=== PATIENT | male | born 1960 | race Caucasian/White ===

== ENCOUNTER 2017-03-15 18:59 | Inpatient (IN) | payer MEDICAID, SELFPAY ==
[~2017-03-15] VITALS: Ht 188 cm; Wt 104.5 kg
[2017-03-15 20:50] VITALS: BP 206/108
[2017-03-15] MEDS: HumaLOG INSULIN (NovoLOG) PER UNIT SC SCH (21:00)
[2017-03-15] MEDS: SENOKOT S TAB PO SCH (21:00)
[2017-03-15] MEDS: ATORVASTATIN 20 MG TAB PO SCH (21:00)
[2017-03-15 21:18] LABS: MEAN CORPUSCULAR HEMOGLOBIN 31.2 pg (27.0-33.0); MEAN CORPUSCULAR HGB CONC 34.4 g/dl (32.0-36.5); MEAN CORPUSCULAR VOLUME 90.7 fl (80.0-96.0); RED CELL DISTRIBUTION WIDTH 13.6 % (11.5-14.5); WHITE BLOOD COUNT 8.9 K/mm3 (4.0-10.0)
[2017-03-15] MEDS ORDERED: GLUCOSE 4 GM CHEW TABLET PO PRN (21:30)
[2017-03-15] MEDS ORDERED: DEXTROSE 50% 50 ML SYRINGE IV PRN (21:30)
[2017-03-15] MEDS ORDERED: GLUCAGON FOR INJ 1 MG VIAL (J1610) SC PRN (21:30)
[2017-03-15 21:40] LABS: ANION GAP 7 MEQ/L (8-16); BLOOD UREA NITROGEN 9 MG/DL (7-18); CALCIUM LEVEL 8.6 MG/DL (8.5-10.1); CARBON DIOXIDE LEVEL 27 MEQ/L (21-32); CHLORIDE LEVEL 103 MEQ/L (98-107); CREATININE FOR GFR 0.93 MG/DL (0.70-1.30); GLOMERULAR FILTRATION RATE > 60.0 (>56); GLUCOSE, FASTING 262 MG/DL (70-105); POTASSIUM SERUM 3.7 MEQ/L (3.5-5.1); SODIUM LEVEL 137 MEQ/L (136-145)
[2017-03-15] MEDS ORDERED: DIPH50CA PO (21:58)
[2017-03-15] MEDS ORDERED: NORC1TAB4 PO (21:58)
[2017-03-15] MEDS: hydrALAZINE INJ 20 MG/ML VIAL IV SCH (22:05)
[2017-03-15 22:44] LABS: CHOLESTEROL LEVEL 159 MG/DL (<200); TRIGLYCERIDES LEVEL 192 MG/DL (<150)
--- NOTE | 2017-03-15 23:40 | REPUSA ---
MRA of the brain Clinical history: Left sided numbness. Technique: [id number] MRA images of the brain were obtained without administration of contrast. 3 -D MIP images were also obtained. 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 There is also no signifi cant flow demonstrated in the right superior cerebellar artery, although flow is seen in the left cer ebellar artery. Reconstitution of blood flow is seen just proximal to the The vascular structures ex tending from the distal carotid through the hughes of Van demonstrate normal caliber and contour. There is no evidence of aneurysm. 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
--- NOTE | 2017-03-15 23:50 | REPUSA ---
MRI of the brain Clinical history: left-sided numbness. Technique: Multiecho multiplanar MRI images of the brain were obtained without administration of cont rast. Diffusion weighted images with ADC mapping was also obtained. Findings: The ventricles and sulci are symmetric bilaterally. There is a focal area of T2 hyperintensity demon strated the posterior right lashay. This site demonstrates restricted diffusion, consistent with an acu te infarct. Mild edema is seen in this region on T2 weighted images. There is no midline shift, mass effect, or extra-axial fluid collection. The cervical cranial junction is intact. The orbits are unre markable. The visualized paranasal sinuses and mastoid air cells are clear. The osseous structures an d superficial soft tissues are unremarkable. The vascular structures demonstrate appropriate flow voi ds. 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 Laura, the floor nurse, was notified of these findings at 11:42 PM on 03/15/2017. The physician is to be notified.
[2017-03-15 23:59] VITALS: BP 184/98
[2017-03-16] VITALS (8 sets, daily range): BP systolic 160–186; BP diastolic 82–98
--- NOTE | 2017-03-16 01:18 | IPNPDOC ---
Text Note Date of Service The patient was seen on 03/16/17. NOTE Spoke with Dr Regan in [facility] for possible transfer for thrombectomy . However as his NIHSS stroke score is only 4 he is not a candidate for any endovascular intervention. It is recommended only is the score is [address] or greater[address] Sp[address] with [address] Hatch he will be seeing the patient. Will continue with statin , asa, maintain sbp between 160 to 180 , neuro checks. VS,Fishbone, I+O VS, Fishbone, I+O Laboratory Tests 03/15/17 21:09 Red Blood Count 5.78, Mean Corpuscular Volume 90.7, Mean Corpuscular Hemoglobin 31.2, Mean Corpuscular Hemoglobin Concent 34.4, Red Cell Distribution Width 13.6 , Calcium Level 8.6 Vital Signs Date Time Temp Pulse Resp B/P (MAP) Pulse Ox O2 Delivery O2 Flow Rate FiO2 03/15/17 23:59 99.6 95 20 184/98 (126) 95 Room Air I&O- Last 24 Hours up to 6 AM 03/16/17 06:00 Intake Total 0 ml Balance 0 ml VICKI DRISCOLL MD March 16, 2017 01:18
[2017-03-16] MEDS: hydrALAZINE INJ 20 MG/ML VIAL IV SCH ×4 (02:55→21:10)
--- NOTE | 2017-03-16 03:47 | REP ---
Clinical: Acute stroke. Technique: Gramajo scale and color Doppler evaluation using linear high frequency transducer Findings: Two-dimensional gramajo scale and color images demonstrate intimal thickening to the bilateral common carotid arteries extending to the carotid bulbs where small amounts of mixed plaque material is identified causing minimal luminal narrowing. Normal laminar flow is appreciated without turbulence or significant stenosis. Color Doppler interrogation demonstrates normal arterial wave patterns and velocities with no significant spectral broadening. Normal flow direction is appreciated in the bilateral vertebral arteries. RIGHT (cm/s) LEFT (cm/s) ICA peak systolic velocity 90.7 996.8 ICA diastolic velocity 37.0 34.5 ECA peak systolic velocity 162.6 153.9 CCA peak systolic velocity 122.2 145.8 ICA/CCA ratio 0.74 0.66 Impression: No hemodynamically significant areas of narrowing or stenosis appreciated. Based on set standards narrowing falls within the less than 50% range. Signed by Jad Silva MD 03/16/2017 03:39 A
--- NOTE | 2017-03-16 05:32 | HPE ---
DATE OF ADMISSION: 03/15/2017 PRIMARY CARE PROVIDER: JAVIER Nation. CHIEF COMPLAINT: Patient presented to [facility] with left-sided tingling, numbness, weakness and lightness for 1 day. PAST MEDICAL HISTORY: Hypertension, has not taken any medications for at least 10 years. HISTORY OF PRESENT ILLNESS: This is a 56-year-old male, has not seen any physician except orthopedic surgeons for the past 10 years and has not had any blood work done that he can remember for the past 10 years, who has been feeling sick for 1 week. He felt off balance, which happened intermittently throughout the week. He also had blurring of vision intermittently during the week, then on one day last week he checked his blood pressure, which was over 200; however, he rechecked it later, which came down back to normal. He was also feeling some abnormal sensations over his hands and legs today. The tingling and numbness was all throughout the left side of the body including the face, the upper extremities and the lower extremities. He felt his hands and his legs were pelts skinner and numb and he felt that he was not able to make his hand do his commands properly. He thought that he was having a stroke. In the emergency department (ED), on initial arrival, his blood pressure was noted to be 216/139, pulse was 110, respiratory rate 16, temperature 98.5, pulse oximetry 99% in room air. He had a CT scan of the head dome at [facility], which did not show any acute stroke; however, on physical exam, it was felt his left side was weaker and there was drift on the left upper extremity, so the concern for stroke remained high, so our hospital was called for transfer as they did not have MRA capabilities, so the patient was transferred here for evaluation for stroke. On admission here, initially his blood pressure was 210. Patient was ordered MRI and MRA of the brain. Patient's blood work from [place] was significant for hemoglobin of 18.4, hematocrit of 50, platelets of 132. His sodium was 129, blood sugar was 326. Liver function tests were normal. Renal function tests were normal. Coagulation studies were normal. Patient did say that he took someone else's ramipril on , Thursday and Thursday after he noted his blood pressure to be high on Thursday and after taking the ramipril his blood pressure had improved. He denied any fever or chills. Denied any chest pain, any shortness of breath or cough. Denied any abdominal pain, nausea, vomiting or diarrhea. He continues to have persistent abnormal sensations on the left side of the body and weakness. PAST SURGICAL HISTORY: Right knee surgery and left knee surgery about 10 years ago. SOCIAL HISTORY: Patient smokes about a pack per day. Occasionally drinks alcohol. Does not abuse any recreational drugs. ALLERGIES: No known drug allergies. HOME MEDICATIONS: Does not take any home medications. REVIEW OF SYSTEMS: All 10-point review of systems was negative except those mentioned in history of present illness (HPI). PHYSICAL EXAMINATION: VITAL SIGNS: Temperature 97.5, pulse 94, respiratory rate 20, blood pressure 206/108, pulse oximetry 94% in room air. GENERAL: Patient awake, alert, oriented times three, lying down in bed in no acute distress. HEENT: Normocephalic, atraumatic. Moist mucous membranes. Anicteric eyes. CHEST: Clear to auscultation. CARDIOVASCULAR: S1, S2 regular. No rub, murmur or gallop. ABDOMEN: Soft, nontender, bowel sounds present. EXTREMITIES: No edema. NEUROLOGICAL: There is 4/5 power in the upper extremity and 4/5 power in the lower extremity. There is pronator drift of the upper extremity. Babinski is equivocal. Deep tendon reflexes could not be elicited on either lower extremity. LABORATORY DATA: WBC 8.9, hemoglobin 18, platelets 128. Sodium 137, potassium 3.7, chloride 103, bicarbonate 27, BUN 9, creatinine 0.9, glucose 262, calcium 8.6. ASSESSMENT AND PLAN: This is a 56-year-old male admitted for possible stroke. PLAN: 1. For possible stroke, will get MRI and MRA of the brain without contrast. Will also get carotid ultrasound bilaterally. Patient already received aspirin and statin at [facility]. Will continue that from tomorrow. Will allow for permissive hypertension and will not give any antihypertensive medications unless systolic blood pressure is over 180. 2. Diabetes. Patient has two tests of over 200 random values, so that qualifies the patient as diabetic. Will place the patient on sliding-scale insulin at present and will later start the patient on oral hypoglycemic medications. 3. Hypertension. Patient did have some blood pressure readings in that hospital, as well as initial blood pressure reading in our hospital over 200. Will place the patient on as needed hydralazine 10 mg intravenously (IV) if systolic blood pressure is greater than 180. 4. Deep venous thrombosis (DVT) prophylaxis has been ordered.
[2017-03-16] MEDS: ENOXAPARIN 40 MG/0.4 ML SYRINGE (J1650) SC SCH (08:59)
[2017-03-16] MEDS ORDERED: ASPIRIN ENTERIC 325 MG TAB PO SCH (09:00)
[2017-03-16] MEDS ORDERED: ASPIRIN 81 MG ENTERIC TAB PO SCH (09:00)
[2017-03-16] MEDS: HumaLOG INSULIN (NovoLOG) PER UNIT SC SCH ×4 (09:00→21:00)
[2017-03-16] MEDS: SENOKOT S TAB PO SCH ×2 (09:00→21:10)
[2017-03-16 09:25] LABS: MEAN CORPUSCULAR HEMOGLOBIN 31.8 pg (27.0-33.0); MEAN CORPUSCULAR HGB CONC 35.5 g/dl (32.0-36.5); MEAN CORPUSCULAR VOLUME 89.5 fl (80.0-96.0); RED CELL DISTRIBUTION WIDTH 13.6 % (11.5-14.5); WHITE BLOOD COUNT 9.7 K/mm3 (4.0-10.0)
[2017-03-16 09:41] LABS: ANION GAP 9 MEQ/L (8-16); BLOOD UREA NITROGEN 10 MG/DL (7-18); CALCIUM LEVEL 8.4 MG/DL (8.5-10.1); CARBON DIOXIDE LEVEL 24 MEQ/L (21-32); CHLORIDE LEVEL 104 MEQ/L (98-107); CREATININE FOR GFR 0.81 MG/DL (0.70-1.30); GLOMERULAR FILTRATION RATE > 60.0 (>56); GLUCOSE, FASTING 220 MG/DL (70-105); POTASSIUM SERUM 3.6 MEQ/L (3.5-5.1); SODIUM LEVEL 137 MEQ/L (136-145)
--- NOTE | 2017-03-16 09:44 | IPNPDOC ---
Date Seen The patient was seen on 03/16/17. Progress Note SUBJECTIVE: Mr. Almaguer is a 56-year-old male who is examined at bedside this morning. He is alert and conversant. He is able to follow my commands and answer appropriately. He continues to report persistent numbness and tingling on the left side. Positive pronator drift in the upper and lower extremity. Patient states he is not aware of any history of hypertension. Is a current tobacco user. Smokes approximately 2 packs a day and has done so since the age of 15. No family history of stroke. No facial droop or tongue deviation. Denies chest pain. Patient states that symptoms started a week ago on Thursday and reported that his balance was off and that he had some blurry vision. He states that the symptoms subsided but then returned and persisted yesterday. This was the reason for presenting to the emergency department. OBJECTIVE PHYSICAL EXAMINATION: VITAL SIGNS: Please see below. GENERAL: Well-developed, well-nourished male sitting comfortably in hospital bed upon evaluation this morning, no apparent distress HEENT: Atraumatic, normocephalic, no facial droop present, no tongue deviation, altered sensation noted on the left side CARDIOVASCULAR: Regular rate and rhythm, normal S1 and S2, no murmur, rub, click RESPIRATORY: Clear to auscultation bilaterally, adequate inspiratory and expiratory airway excursion, no wheeze, rhonchi, crackles ABDOMINAL: Flat, soft, nontender, nondistended EXTREMITIES: Pronator drift present in the left upper and lower extremity, peripheral pulses appreciated bilaterally, equal, symmetrical, +2/4, diminished reflexes noted on the left, normal reflexes on the right NEUROLOGICAL: Numbness and tingling noted on the left side PSYCHOLOGICAL: Mood and affect appear appropriate LABORATORY DATA: Please see below. MICROBIOLOGY: Please see below. IMAGING: Bilateral carotid duplex Impression: No hemodynamically significant areas of narrowing or stenosis appreciated. Based on set standards narrowing falls within the less than 50% range. 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 MRI of the brain without contrast Impression: Acute infarct in the posterior right lashay. Echocardiogram: Pending DVT prophylaxis ordered?: Lovenox 40 mg subcutaneous daily ASSESSMENT AND PLAN: Mr. Almaguer is a 56-year-old male who presents with cerebrovascular accident. PROBLEMS: 1. Cerebrovascular accident, basilar artery: Imaging reports above that indicate acute infarction to the basilar artery. Carotid ultrasound was negative. Maintaining permissive hypertension. Patient's blood pressure is currently 178/85. Neurology has been consulted. Patient continues to have persistent altered sensation to the left side. Receiving aspirin 325 mg daily, hydralazine 10 mg every 6 hours, and Lipitor 40 mg at night. Various studies are being conducted to evaluate for potential cause of stroke. 2. Chronic pain: Patient does take Mcdade outpatient. We'll hold this medication for the time being. 3. Allergies: Patient takes diphenhydramine for allergies. DISPOSITION: Patient continues to have persistent altered sensation to the left side. Imaging reveals acute infarction to the basilar artery. Appreciate neurology's consultation. Continue with current therapy. Order physical therapy , occupational therapy, and speech therapy. Patient reports difficulty swallowing secondary to numbness on the left side. Aspiration precautions. VS, I&O, 24H, Fishbone Vital Signs/I&O Vital Signs Date Time Temp Pulse Resp B/P (MAP) Pulse Ox O2 Delivery O2 Flow Rate FiO2 03/16/17 08:00 174/82 03/16/17 08:00 98.1 85 18 95 Room Air I&O- Last 24 Hours up to 6 AM 03/16/17 06:00 Intake Total 120 ml Output Total 550 ml Balance -430 ml Laboratory Data 24H LABS Laboratory Tests 2 03/15/17 21:04: Estimated Mean Plasma Glucose 255H, Hemoglobin A1c 10.5H 03/15/17 21:09: Anion Gap 7L, Glomerular Filtration Rate > 60.0, Blood Urea Nitrogen 9, Creatinine 0.93, Sodium Level 137, Potassium Level 3.7, Chloride Level 103, Carbon Dioxide Level 27, Calcium Level 8.6, Triglycerides Level 192H, LDL Cholesterol 83.6, Total Cholesterol 159, Non-HDL Cholesterol (LDL + VLDL) 122, Total HDL Cholesterol 37L, Cholesterol/HDL Ratio 4.297 03/16/17 04:55: Erythrocyte Sedimentation Rate 2, C-Reactive Protein, Quantitative < 0.30 03/16/17 06:17: Bedside Glucose (Misc Panel) 209H CBC/BMP Laboratory Tests 03/15/17 21:09 Red Blood Count 5.78, Mean Corpuscular Volume 90.7, Mean Corpuscular Hemoglobin 31.2, Mean Corpuscular Hemoglobin Concent 34.4, Red Cell Distribution Width 13.6 , Calcium Level 8.6 SONU BARRON-Alexander March 16, 2017 09:44
[2017-03-16] MEDS: NICOTINE 21MG/24HR 1 EA TRANSDERMAL TD SCH (10:14)
[2017-03-16] MEDS ORDERED: SLF 3 ML SYR IV PRN (10:15)
--- NOTE | 2017-03-16 13:32 | REP ---
MR ANGIOGRAPHY OF THE CAROTIDS WITHOUT AND WITH IV GADOLINIUM: HISTORY: Acute stroke. Comparison is made with the previous day's MRI study would interpreted showing a right posterior pontine infarction. TECHNIQUE: 2D [id number] and 3D post-gadolinium enhanced MR angiography is acquired in the usual fashion. Maximal intensity projection images are generated and displayed rotationally. Source axial and coronal images are reviewed. The gadolinium enhancement dose is 25 ml of intravenous ProHance. MR angiographic findings: Great vessel origins from the thoracic aorta are unremarkable. The vertebral arteries are patent and codominant. There is however a high-grade stenosis versus short segment occlusion of the basilar artery. The right distal vertebral artery is hypoplastic. The common carotid arteries are unremarkable. No evidence of carotid artery stenosis is seen on either side. The internal carotid arteries are unremarkable bilaterally. IMPRESSION: High-grade focal stenosis versus short segment occlusion of the basilar artery. Signed by Alf Booth MD 03/16/2017 03:43 P
[2017-03-16] MEDS: SLF 3 ML SYR IV SCH ×2 (14:00→21:13)
[2017-03-16] MEDS ORDERED: CLOPIDOGREL 75 MG TAB PO ONE (16:00)
[2017-03-16] MEDS: ATORVASTATIN 20 MG TAB PO SCH (21:08)
[2017-03-17] VITALS (9 sets, daily range): BP systolic 154–189; BP diastolic 82–107
[2017-03-17] MEDS: hydrALAZINE INJ 20 MG/ML VIAL IV SCH ×4 (02:17→20:28)
[2017-03-17] MEDS ORDERED: ASPIRIN 81 MG ENTERIC TAB PO ONE (03:15)
[2017-03-17] MEDS ORDERED: ACETAMINOPHEN TAB 650MG DOSE (2X325MG) PO ONE (04:30)
[2017-03-17] MEDS: SLF 3 ML SYR IV SCH ×3 (05:29→21:14)
--- NOTE | 2017-03-17 06:00 | ECHO ---
DATE OF PROCEDURE: 03/15/2017 AGE: 56 GENDER: Male REFERRING PHYSICIAN: Dr. Keyana Meek. HEIGHT: 74 inches. WEIGHT: 233 pounds. BODY SURFACE AREA: 2.32 sq m. INPATIENT: PCU Room 3221. INDICATION: Cerebrovascular accident (CVA, question cardiac source). MEASUREMENTS: 2D MEASUREMENTS: RV - 3.9 cm LV- 4.8 cm Septum - 1.3 cm Posterior wall - 1.3 cm Aortic root - 3.7 cm LA - 4.2 cm LVEF - 65% DOPPLER MEASUREMENTS: AV - 1.1 m/s LVOT - 0.95 m/s LVOT diameter - 2.7 cm MV-E: 73 A: 110 EA ratio 0.6 Early mitral deacceleration time 155 ms E-prime - 6.1 A-prime - 13 E/E prime ratio 11.8 PV - 0.9 m/s Pulmonary artery acceleration time 81 ms PASP - 43 mmHg IVC - 1.8 cm COMMENTS: Normal sinus rhythm without significant intraventricular conduction disturbance. Technically difficult study in light of the patient's body habitus but diagnostically useful information was still obtained. Mildly dilated left atrium but normal left ventricular size. Right heart chamber sizes were normal. LV wall thickness was at least mildly hypertrophied symmetrically. On real-time imaging from the parasternal and apical projections, wall motion was symmetrical and normal to hyperkinetic. Slightly thickened mitral annulus but normal leaflet thickness and excursion with no posterior systolic buckling. Three equal size aortic cusps with marginally thickened cusp edges but adequate cusp separation. Normal aortic root size. No apparent intracardiac mass or pericardial effusion. Color flow Doppler study taken from the parasternal and apical projection showed trace tricuspid but no mitral or aortic insufficiency. Guided continuous wave Doppler of his aortic valve showed a normal peak systolic velocity against LV outflow tract obstruction. Pulsed and continuous wave Doppler of his LV inflow tract taken from the apical four-chamber projection showed normal diastolic filling velocities against mitral stenosis. There was more prominent late diastolic/atrial dependent filling pattern. A degree of diastolic dysfunction was confirmed using tissue Doppler of his mitral annulus but his current estimated mean left atrial pressure was upper limits of normal at approximately 15 mmHg. Pulsed and continuous wave Doppler of his pulmonary trunk showed a normal peak systolic velocity against RV outflow tract obstruction. His pulmonary artery acceleration time was abbreviated suggestive of an elevated pulmonary vascular resistance and perhaps moderate pulmonary hypertension. We attempted to further estimate his right ventricular systolic pressure using guided continuous wave Doppler of his tricuspid valve but could not get a clear spectral envelope. His inferior vena cava was of normal size with normal respiratory collapse against an elevated central venous pressure. CONCLUSIONS: Technically difficult study. Unable to identify a potential intracardiac source of his embolic phenomenon. Mild concentric left ventricle hypertrophy with normal wall motion. Mildly dilated left atrium with Doppler evidence of an impairment of LV diastolic function and estimated mean left atrial pressure upper limits of normal to mildly increased. Normal right heart chamber sizes but Doppler sign of perhaps mild to moderate pulmonary hypertension. Normal IVC size and collapse against an elevated central venous pressure. Subtle aortic valvular sclerosis and mitral annular thickening. If a cardiac source is seriously suspect in this patient, we would recommend a transesophageal echocardiogram for better visualization.
[2017-03-17 06:12] LABS: ANION GAP 11 MEQ/L (8-16); BLOOD UREA NITROGEN 10 MG/DL (7-18); CALCIUM LEVEL 8.2 MG/DL (8.5-10.1); CARBON DIOXIDE LEVEL 23 MEQ/L (21-32); CHLORIDE LEVEL 105 MEQ/L (98-107); CREATININE FOR GFR 0.76 MG/DL (0.70-1.30); GLOMERULAR FILTRATION RATE > 60.0 (>56); GLUCOSE, FASTING 196 MG/DL (70-105); POTASSIUM SERUM 3.3 MEQ/L (3.5-5.1); SODIUM LEVEL 139 MEQ/L (136-145)
--- NOTE | 2017-03-17 06:20 | REPUSA ---
CLINICAL HISTORY: Headache. TECHNIQUE: Multiple axial CT images were obtained through the brain without IV contrast material. COMMENTS: There is normal configuration of sella turcica. There are no intra or extra-axial collections. There is no mass effect or midline shift. There is no evidence of hematoma formation. No hydrocephalus is p resent. The ventricles are symmetrical. No abnormal calcifications are present. There are bilateral periventricular and subcortical white matter hypolucencies compatible with mild c hronic microvascular disease. Otherwise, no significant focal abnormalities are seen either in the posterior fossa or supratentoria l compartment. IMPRESSION: 1. Mild chronic microvascular disease. 2. No evidence of acute intracranial pathology. Thank you for your kind referral of this patient.
[2017-03-17 06:21] LABS: BASO # 0.1 K/mm3 (0.0-0.2); EOS # 0.2 K/mm3 (0.0-0.50); EOS % 1.9 % (0.0-3.0); LARGE UNSTAINED CELL # 0.2 K/mm3 (0.0-0.4); LARGE UNSTAINED CELL % 1.5 % (0.0-4.0); LYMPH # 1.9 K/mm3 (1.5-4.5); LYMPH % 17.4 % (24.0-44.0); MEAN CORPUSCULAR HEMOGLOBIN 30.6 pg (27.0-33.0); MEAN CORPUSCULAR HGB CONC 34.8 g/dl (32.0-36.5); MEAN CORPUSCULAR VOLUME 87.8 fl (80.0-96.0); MONO # 0.6 K/mm3 (0.0-0.8); MONO % 5.7 % (0.0-5.0); NEUTROPHILS # 7.1 K/mm3 (1.8-7.7); NEUTROPHILS % 72.5 % (36.0-66.0); PLATELET COUNT, AUTOMATED 106 k/mm3 (150-450); RED CELL DISTRIBUTION WIDTH 13.7 % (11.5-14.5); WHITE BLOOD COUNT 9.8 K/mm3 (4.0-10.0)
[2017-03-17] MEDS: ENOXAPARIN 40 MG/0.4 ML SYRINGE (J1650) SC SCH (08:34)
[2017-03-17] MEDS: POTASSIUM CHLORIDE 10 MEQ SR TABLET PO SCH ×2 (08:35→11:51)
[2017-03-17] MEDS: HumaLOG INSULIN (NovoLOG) PER UNIT SC SCH ×4 (08:35→21:00)
[2017-03-17] MEDS: SENOKOT S TAB PO SCH ×2 (08:35→20:28)
[2017-03-17] MEDS: ASPIRIN 81 MG ENTERIC TAB PO SCH (08:36)
[2017-03-17] MEDS: NICOTINE 21MG/24HR 1 EA TRANSDERMAL TD SCH (08:36)
--- NOTE | 2017-03-17 14:51 | IPNPDOC ---
Date Seen The patient was seen on 03/17/17. Progress Note SUBJECTIVE: Mr. Almaguer is a 56-year-old male who is evaluated bedside this morning. He reports to me that he feels as though his numbness and tingling is getting worse. Reported headache overnight and his CT of the head was obtained. It reported no acute changes. Evaluated by physical therapy and speech therapy, and occupational therapy. OBJECTIVE PHYSICAL EXAMINATION: VITAL SIGNS: Please see below. GENERAL: Pleasant male sitting on the edge of the bed upon evaluation this morning, well-nourished, well-developed, no apparent distress HEENT: Atraumatic, normocephalic, PERRL, EOMI, lateral nystagmus noted in the right eye, no facial asymmetry appreciated CARDIOVASCULAR: Regular rate and rhythm, normal S1 and S2, no murmur, rub, click appreciated RESPIRATORY: Clear to auscultation bilaterally, adequate inspiratory next for airway excursion, no wheeze, rhonchi, crackles ABDOMINAL: Soft, nontender, nondistended, bowel sounds appreciated EXTREMITIES: No edema appreciated in bilateral lower extremities; lower extremity muscle strength 5/5; sensation still diminished on the entire left side of the body; left upper extremity muscle strength 4/5; right upper extremity muscle strength 5/5; upper and lower extremity reflexes unobtainable even with multiple attempts; skin warm, dry, intact; no atrophy appreciated NEUROLOGICAL: Sensation to the entire left side of the body is diminished; appropriate shoulder shrug, no tongue deviation, no facial asymmetry, lateral nystagmus noted on the right PSYCHOLOGICAL: Mood and affect appear appropriate LABORATORY DATA: Please see below. MICROBIOLOGY: Please see below. IMAGING: CT of the head without contrast IMPRESSION: 1. Mild chronic microvascular disease. 2. No evidence of acute intracranial pathology. Echocardiogram: CONCLUSIONS: Technically difficult study. Unable to identify a potential intracardiac source of his embolic phenomenon. Mild concentric left ventricle hypertrophy with normal wall motion. Mildly dilated left atrium with Doppler evidence of an impairment of LV diastolic function and estimated mean left atrial pressure upper limits of normal to mildly increased. Normal right heart chamber sizes but Doppler sign of perhaps mild to moderate pulmonary hypertension. Normal IVC size and collapse against an elevated central venous pressure. Subtle aortic valvular sclerosis and mitral annular thickening. If a cardiac source is seriously suspect in this patient, we would recommend a transesophageal echocardiogram for better visualization. DVT prophylaxis ordered?: Aspirin 81 mg and Plavix 75 mg daily ASSESSMENT AND PLAN: Mr. Almaguer is a 56-year-old male who presents with cerebrovascular accident and new onset diabetes. PROBLEMS: 1. Cerebrovascular accident, basilar artery: Continue neurology's input. Continue with permissive hypertension for the next 48 hours. Continue with aspirin and Plavix. Transthoracic echocardiogram was not revealing as a source for emboli. Cardiac source less likely as an etiology. Patient has significant tobacco use history. Physical therapy, occupational therapy, and speech therapy consulted. 2. Diabetes mellitus, new onset: Continue with sliding scale insulin and hypoglycemic protocol. 3. Hypokalemia: Likely result of sliding scale insulin. Supplementation provided. 2. Chronic pain: Patient does take [place] outpatient. We'll hold this medication for the time being. 3. Allergies: Continue with diphenhydramine. DISPOSITION: Currently admitted to the progressive care unit. Continue with physical therapy and occupational therapy. Potential transfer to rehabilitation services in the next 48-72 hours. VS, I&O, 24H, Fishbone Vital Signs/I&O Vital Signs Date Time Temp Pulse Resp B/P (MAP) Pulse Ox O2 Delivery O2 Flow Rate FiO2 03/17/17 13:50 175/96 03/17/17 13:40 105 03/17/17 11:46 96.7 20 96 03/17/17 08:00 Room Air I&O- Last 24 Hours up to 6 AM 03/17/17 06:00 Intake Total 600 ml Output Total 1100 ml Balance -500 ml Laboratory Data 24H LABS Laboratory Tests 2 03/16/17 16:55: Bedside Glucose (Misc Panel) 213H 03/16/17 19:23: Bedside Glucose (Misc Panel) 221H 03/17/17 05:33: White Blood Count 9.8, Red Blood Count 5.65, Hemoglobin 17.3, Hematocrit 49.6, Mean Corpuscular Volume 87.8, Mean Corpuscular Hemoglobin 30.6, Mean Corpuscular Hemoglobin Concent 34.8, Red Cell Distribution Width 13.7, Platelet Count 106L, Neutrophils (%) (Auto) 72.5H, Lymphocytes (%) (Auto) 17.4L, Monocytes (%) (Auto) 5.7H, Eosinophils (%) (Auto) 1.9, Basophils (%) (Auto) 1.0 , Neutrophils # (Auto) 7.1, Lymphocytes # (Auto) 1.9, Monocytes # (Auto) 0.6, Eosinophils # (Auto) 0.2, Basophils # (Auto) 0.1, Large Unclassified Cells % 1.5 , Large Unclassified Cells # 0.2, Anion Gap 11, Glomerular Filtration Rate > 60.0, Blood Urea Nitrogen 10, Creatinine 0.76, Sodium Level 139, Potassium Level 3.3L, Chloride Level 105, Carbon Dioxide Level 23, Calcium Level 8.2L 03/17/17 11:32: Bedside Glucose (Misc Panel) 183H CBC/BMP Laboratory Tests 03/17/17 05:33 Red Blood Count 5.65, Mean Corpuscular Volume 87.8, Mean Corpuscular Hemoglobin 30.6, Mean Corpuscular Hemoglobin Concent 34.8, Red Cell Distribution Width 13.7 , Neutrophils (%) (Auto) 72.5 H, Lymphocytes (%) (Auto) 17.4 L, Monocytes (%) ( Auto) 5.7 H, Eosinophils (%) (Auto) 1.9, Basophils (%) (Auto) 1.0, Neutrophils # (Auto) 7.1, Lymphocytes # (Auto) 1.9, Monocytes # (Auto) 0.6, Eosinophils # ( Auto) 0.2, Basophils # (Auto) 0.1, Calcium Level 8.2 L SONU BARRON-Alexander March 17, 2017 14:51
[2017-03-17] MEDS: ATORVASTATIN 20 MG TAB PO SCH (20:28)
--- NOTE | 2017-03-17 21:43 | CR ---
DATE OF CONSULTATION: 03/17/2017 REASON FOR CONSULTATION: Suspect stroke. HISTORY OF PRESENT ILLNESS: Cedric Almaguer is a 56-year-old male with a past medical history significant for untreated diabetes, tobacco abuse presenting with a chief complaint of experiencing intermittent symptoms of dizziness, off balance feeling, blurring of vision intermittently for the week. He suddenly developed left upper and lower extremity paresthesias and tingling which persisted. He was seen at [facility] and he was thought to have possible stroke. Head CT was negative. The patient was later transferred to [facility] for further evaluation. By then, the patient is out of the TPA window. The patient was found to have evidence of a right posterior pontine infarct, as well as evidence of a vascular severe stenosis versus occlusion with right atrial artery occlusion. The patient was started on aspirin 81 mg daily. This was switched over to aspirin 81 mg and Plavix 75 mg daily. The patient states that he is ready to quit tobacco. He states that he continues to have paresthesias of his left arm and leg and trunk. He has weakness and clumsiness of his left arm and of his left leg. He has a positive pronator drift upon assessment. He denies any headache. He denies any change in vision or speech. He denies any dysarthria. PAST MEDICAL HISTORY: Tobacco abuse, untreated diabetes, new diagnosis for the patient. PAST SURGICAL HISTORY: Right knee surgery and left knee surgery about 10 years ago. SOCIAL HISTORY: The patient smokes one to two packs of tobacco per day and drinks alcohol recreationally. Denies use of any recreational drugs. ALLERGIES: None. MEDICATIONS: None. REVIEW OF SYSTEMS: 14-point review of systems obtained and is negative except as per history of present illness. PHYSICAL EXAMINATION Blood pressure is 206/108 on admission, pulse rate 94, respiratory rate 20, oxygenation 94% on room air. The patient is alert, oriented to person, place and time. Speech language, repetition are intact. Pupils are 3 mm round, reactive to light. No nystagmus is noted. V1, V2-V3 is intact to light touch. Hearing is subjectively equal to finger rub and tongue is midline. Palate elevates symmetrically. No weakness sternocleidomastoids bilaterally. Motor examination: There is positive pronator drift of the left upper extremity. Deltoid is a 5-/5, otherwise 5/5 throughout. The lower extremity iliopsoas on the left is a 4+, otherwise 5/5 throughout. Deep tendon reflexes are slightly increased in the left upper extremity compared to the right. Deep tendon reflexes are absent at the patellas and Achilles. Babinski signs are mute. Sensory is in decreased to light touch in the left upper and lower extremity. Coordination reveals mild dysmetria with [id number] of the left upper extremity. Gait deferred. ASSESSMENT: 1. Posterior right pontine acute infarct with severe stenosis of deep vessel artery versus occlusion, as well as occlusion of the right vertebral artery under the setting of tobacco abuse and undiagnosed diabetes. PLAN 1. Optimize diabetes. 2. Continue aspirin 81 mg, Plavix 75 mg. 3. Continue Lipitor 40 mg. 4. Continue telemetry monitoring. Followup echocardiogram. 5. Physical therapy (PT) and occupational therapy (OT) evaluation. 6. Keep systolic blood pressure 140 to 180 for 72 hours and then normalize. 7. Recommend tobacco cessation.
[2017-03-18] VITALS (7 sets, daily range): BP systolic 140–174; BP diastolic 67–110
[2017-03-18] MEDS: hydrALAZINE INJ 20 MG/ML VIAL IV SCH ×4 (01:09→20:00)
[2017-03-18] MEDS: SLF 3 ML SYR IV SCH ×3 (05:34→21:34)
[2017-03-18 06:12] LABS: BASO # 0.1 K/mm3 (0.0-0.2); BASO % 0.8 % (0.0-1.0); EOS # 0.2 K/mm3 (0.0-0.50); EOS % 1.7 % (0.0-3.0); LARGE UNSTAINED CELL # 0.2 K/mm3 (0.0-0.4); LARGE UNSTAINED CELL % 1.7 % (0.0-4.0); LYMPH # 1.6 K/mm3 (1.5-4.5); MEAN CORPUSCULAR HEMOGLOBIN 31.2 pg (27.0-33.0); MEAN CORPUSCULAR HGB CONC 34.6 g/dl (32.0-36.5); MEAN CORPUSCULAR VOLUME 90.2 fl (80.0-96.0); MONO # 0.7 K/mm3 (0.0-0.8); MONO % 7.5 % (0.0-5.0); NEUTROPHILS # 6.3 K/mm3 (1.8-7.7); NEUTROPHILS % 70.5 % (36.0-66.0); PLATELET COUNT, AUTOMATED 133 k/mm3 (150-450); RED CELL DISTRIBUTION WIDTH 13.8 % (11.5-14.5)
[2017-03-18 06:21] LABS: ANION GAP 11 MEQ/L (8-16); BLOOD UREA NITROGEN 14 MG/DL (7-18); CALCIUM LEVEL 8.9 MG/DL (8.5-10.1); CARBON DIOXIDE LEVEL 21 MEQ/L (21-32); CHLORIDE LEVEL 109 MEQ/L (98-107); CREATININE FOR GFR 0.75 MG/DL (0.70-1.30); GLOMERULAR FILTRATION RATE > 60.0 (>56); GLUCOSE, FASTING 196 MG/DL (70-105); POTASSIUM SERUM 3.5 MEQ/L (3.5-5.1); SODIUM LEVEL 141 MEQ/L (136-145)
[2017-03-18] MEDS: HumaLOG INSULIN (NovoLOG) PER UNIT SC SCH ×4 (08:25→21:00)
[2017-03-18] MEDS: SENOKOT S TAB PO SCH ×3 (08:26→21:00)
[2017-03-18] MEDS: NICOTINE 21MG/24HR 1 EA TRANSDERMAL TD SCH (08:26)
[2017-03-18] MEDS: CLOPIDOGREL 75 MG TAB PO SCH (08:26)
[2017-03-18] MEDS: ASPIRIN 81 MG ENTERIC TAB PO SCH (08:26)
[2017-03-18] MEDS: ENOXAPARIN 40 MG/0.4 ML SYRINGE (J1650) SC SCH (08:27)
[2017-03-18] MEDS ORDERED: POTASSIUM CHLORIDE 10 MEQ SR TABLET PO ONE (10:00)
--- NOTE | 2017-03-18 11:47 | IPNPDOC ---
Date Seen The patient was seen on 03/18/17. Progress Note SUBJECTIVE: Mr. Almaguer is a 56 year old male evaluated at bedside this morning. He is sitting chairside upon evaluation. Reports that strength and sensation continue to improve. Continues to work with PT and OT. Denies chest pain, shortness of breath. Had a mechanical fall yesterday without LOC or hitting his head. Reports that it was secondary to his altered sensation on his left side. States that he drink EtOH occasionally. OBJECTIVE PHYSICAL EXAMINATION: VITAL SIGNS: Please see below. GENERAL: Well nourished, well developed male evaluated at chairside this morning, no apparent distress HEENT: Atraumatic, normocephalic, PERRL, EOMI, right sided lateral nystagmus, altered sensation to left side of face, no asymmetry CARDIOVASCULAR: Regular rate and rhythm, normal S1 and S2, no murmur, rub, click appreciated RESPIRATORY: Clear to auscultation bilaterally, adequate inspiratory and expiratory airway excursion, no wheeze, rhonchi, crackles ABDOMINAL: Soft, flat, non-tender, non-distended, bowel sounds appreciated EXTREMITIES: LE muscle strength 5/5, sensation improving, but still altered; peripheral pulses appreciated in UE and LE b/l, equal, symmetrical, +2/4; finger -to-nose on the right intact, altered on the left, but improving; UE muscle strength 5/5, sensation improving NEUROLOGICAL: Sensation altered to entire left side, but improving; no facial asymmetry; no muscle weakness PSYCHOLOGICAL: Mood and affect appear appropriate LABORATORY DATA: Please see below. MICROBIOLOGY: Please see below. DVT prophylaxis ordered?: Aspirin 81 mg and Plavix 75 mg daily ASSESSMENT AND PLAN: Mr. Almaguer is a 56-year-old male who presents with cerebrovascular accident and new onset diabetes. PROBLEMS: 1. Cerebrovascular accident, basilar artery with left-sided weakness: Left- sided weakness has been present since admission and has been improving. Started carvedilol to control BP and tachycardia. Continue with aspirin and Plavix. Continue with physical therapy and occupational therapy. 2. Tachycardia: Patient reports being active with PT and OT exercises. Have started carvedilol 6.25mg BID. 3. Diabetes mellitus, new onset: Continue with sliding scale insulin and hypoglycemic protocol. 2. Chronic pain: Patient does take [place] outpatient. We'll hold this medication for the time being. 3. Allergies: Continue with diphenhydramine. DISPOSITION: Currently admitted to the progressive care unit. Continue with physical therapy and occupational therapy. Potential transfer to rehabilitation services in the next 24-48 hours. VS, I&O, 24H, Fabiobone Vital Signs/I&O Vital Signs Date Time Temp Pulse Resp B/P (MAP) Pulse Ox O2 Delivery O2 Flow Rate FiO2 03/18/17 08:44 115 160/92 (114) 03/18/17 08:00 97.5 18 95 Room Air I&O- Last 24 Hours up to 6 AM 03/18/17 06:00 Intake Total 360 ml Output Total 1400 ml Balance -1040 ml Laboratory Data 24H LABS Laboratory Tests 2 03/17/17 16:30: Bedside Glucose (Misc Panel) 196H 03/17/17 21:11: Bedside Glucose (Misc Panel) 189H 03/18/17 05:30: White Blood Count 9.0, Red Blood Count 5.73, Hemoglobin 17.9, Hematocrit 51.7, Mean Corpuscular Volume 90.2, Mean Corpuscular Hemoglobin 31.2, Mean Corpuscular Hemoglobin Concent 34.6, Red Cell Distribution Width 13.8, Platelet Count 133L, Neutrophils (%) (Auto) 70.5H, Lymphocytes (%) (Auto) 18.0L, Monocytes (%) (Auto) 7.5H, Eosinophils (%) (Auto) 1.7, Basophils (%) (Auto) 0.8 , Neutrophils # (Auto) 6.3, Lymphocytes # (Auto) 1.6, Monocytes # (Auto) 0.7, Eosinophils # (Auto) 0.2, Basophils # (Auto) 0.1, Large Unclassified Cells % 1.7 , Large Unclassified Cells # 0.2, Anion Gap 11, Glomerular Filtration Rate > 60.0, Blood Urea Nitrogen 14, Creatinine 0.75, Sodium Level 141, Potassium Level 3.5, Chloride Level 109H, Carbon Dioxide Level 21, Calcium Level 8.9 CBC/BMP Laboratory Tests 03/18/17 05:30 Red Blood Count 5.73, Mean Corpuscular Volume 90.2, Mean Corpuscular Hemoglobin 31.2, Mean Corpuscular Hemoglobin Concent 34.6, Red Cell Distribution Width 13.8 , Neutrophils (%) (Auto) 70.5 H, Lymphocytes (%) (Auto) 18.0 L, Monocytes (%) ( Auto) 7.5 H, Eosinophils (%) (Auto) 1.7, Basophils (%) (Auto) 0.8, Neutrophils # (Auto) 6.3, Lymphocytes # (Auto) 1.6, Monocytes # (Auto) 0.7, Eosinophils # ( Auto) 0.2, Basophils # (Auto) 0.1, Calcium Level 8.9 SONU BARRON-I March 18, 2017 11:47
[2017-03-18] MEDS: CARVedilol 6.25 MG TAB PO SCH ×2 (12:20→21:34)
[2017-03-18 14:20] LABS: PROTEIN C ANTIGEN 97 % (60-150); PROTEIN S ANTIGEN FREE 90 % (57-157); PROTEIN S ANTIGEN TOTAL 92 % (60-150)
[2017-03-18] MEDS: ATORVASTATIN 20 MG TAB PO SCH (21:34)
[2017-03-19] MEDS: hydrALAZINE INJ 20 MG/ML VIAL IV SCH ×3 (02:00→13:38)
[2017-03-19 04:00] VITALS: BP 155/75
[2017-03-19 05:27] LABS: BASO % 0.6 % (0.0-1.0); EOS # 0.2 K/mm3 (0.0-0.50); EOS % 2.5 % (0.0-3.0); LARGE UNSTAINED CELL # 0.2 K/mm3 (0.0-0.4); LARGE UNSTAINED CELL % 1.8 % (0.0-4.0); LYMPH % 23.4 % (24.0-44.0); MEAN CORPUSCULAR HEMOGLOBIN 31.5 pg (27.0-33.0); MEAN CORPUSCULAR HGB CONC 34.1 g/dl (32.0-36.5); MEAN CORPUSCULAR VOLUME 92.1 fl (80.0-96.0); MONO # 0.5 K/mm3 (0.0-0.8); MONO % 5.8 % (0.0-5.0); NEUTROPHILS # 5.6 K/mm3 (1.8-7.7); NEUTROPHILS % 65.8 % (36.0-66.0); PLATELET COUNT, AUTOMATED 101 k/mm3 (150-450); RED CELL DISTRIBUTION WIDTH 13.9 % (11.5-14.5); WHITE BLOOD COUNT 8.5 K/mm3 (4.0-10.0)
[2017-03-19 05:43] LABS: ANION GAP 7 MEQ/L (8-16); BLOOD UREA NITROGEN 15 MG/DL (7-18); CALCIUM LEVEL 8.8 MG/DL (8.5-10.1); CARBON DIOXIDE LEVEL 27 MEQ/L (21-32); CHLORIDE LEVEL 107 MEQ/L (98-107); CREATININE FOR GFR 0.87 MG/DL (0.70-1.30); GLOMERULAR FILTRATION RATE > 60.0 (>56); GLUCOSE, FASTING 194 MG/DL (70-105); POTASSIUM SERUM 3.7 MEQ/L (3.5-5.1); SODIUM LEVEL 141 MEQ/L (136-145)
[2017-03-19] MEDS: SLF 3 ML SYR IV SCH ×2 (06:37→13:48)
[2017-03-19 08:00] VITALS: BP 166/91
[2017-03-19] MEDS ORDERED: CARVedilol 12.5 MG TAB PO SCH (09:00)
[2017-03-19] MEDS: SENOKOT S TAB PO SCH (09:00)
[2017-03-19] MEDS: HumaLOG INSULIN (NovoLOG) PER UNIT SC SCH ×2 (09:31→12:45)
[2017-03-19] MEDS: NICOTINE 21MG/24HR 1 EA TRANSDERMAL TD SCH (09:32)
[2017-03-19] MEDS: CLOPIDOGREL 75 MG TAB PO SCH (09:32)
[2017-03-19] MEDS: ASPIRIN 81 MG ENTERIC TAB PO SCH (09:32)
[2017-03-19 11:19] VITALS: BP 142/88
[2017-03-19] MEDS ORDERED: INSUHUMDS SC ×2 (11:28→11:31)
[2017-03-19] MEDS ORDERED: CLOP75TA2 PO (11:31)
[2017-03-19] MEDS ORDERED: ASPI81TAEC PO (11:31)
[2017-03-19] MEDS ORDERED: CARV12.5 PO ×2 (11:31→18:08)
[2017-03-19] MEDS ORDERED: NICO21PAT TD (11:31)
[2017-03-19] MEDS ORDERED: ATOR1TAB21 PO (11:31)
[2017-03-19 12:00] VITALS: BP 142/88
[2017-03-19 13:38] VITALS: BP 144/74
--- NOTE | 2017-03-19 18:52 | DS.PDOC ---
Discharge Summary General Date of Admission March 15, 2017 at 20:50 Date of Discharge 03/19/2017 Primary Care Physician: Richard Le Attending Physician: MANSI DONALDSON MD Specialist/Consultants Involve: TALIA WELCH MD Specialist/Consultants Involve Neurology Discharge Summary PROCEDURES PERFORMED DURING STAY: None. ADMITTING DIAGNOSES: 1. Cerebrovascular accident with left-sided weakness. 2. New onset diabetes mellitus, type II. 3. Hypertension. DISCHARGE DIAGNOSES: 1. Cerebrovascular accident with left-sided weakness. 2. New onset diabetes mellitus type 2. 3. Hypokalemia. 4. Tachycardia. COMPLICATIONS/CHIEF COMPLAINT: Diabetes; Stroke. HISTORY OF PRESENT ILLNESS: Mr. Almaguer is a 56-year-old male, has not seen any physician except orthopedic surgeons for the past 10 years and has not had any blood work done that he can remember for the past 10 years, who has been feeling sick for 1 week. He felt off balance, which happened intermittently throughout the week. He also had blurring of vision intermittently during the week, then on one day last week he checked his blood pressure, which was over 200; however, he rechecked it later, which came down back to normal. He was also feeling some abnormal sensations over his hands and legs today. The tingling and numbness was all throughout the left side of the body including the face, the upper extremities and the lower extremities. He felt his hands and his legs were curtain cleaner and numb and he felt that he was not able to make his hand do his commands properly. He thought that he was having a stroke. In the emergency department (ED), on initial arrival, his blood pressure was noted to be 216/139, pulse was 110, respiratory rate 16, temperature 98.5, pulse oximetry 99% in room air. He had a CT scan of the head dome at [facility], which did not show any acute stroke; however, on physical exam, it was felt his left side was weaker and there was drift on the left upper extremity, so the concern for stroke remained high, so our hospital was called for transfer as they did not have MRA capabilities, so the patient was transferred here for evaluation for stroke. On admission here, initially his blood pressure was 210. Patient was ordered MRI and MRA of the brain. Patient's blood work from [facility] was significant for hemoglobin of 18.4, hematocrit of 50, platelets of 132. His sodium was 129 , blood sugar was 326. Liver function tests were normal. Renal function tests were normal. Coagulation studies were normal. Patient did say that he took someone else's ramipril on , Thursday and Thursday after he noted his blood pressure to be high on Thursday and after taking the ramipril his blood pressure had improved. He denied any fever or chills. Denied any chest pain, any shortness of breath or cough. Denied any abdominal pain, nausea, vomiting or diarrhea. He continues to have persistent abnormal sensations on the left side of the body and weakness.. HOSPITAL COURSE: Patient was admitted to the progressive care unit. MRI and MRA of the brain without contrast were obtained and are reported below. Carotid ultrasound bilaterally was obtained and is reported below. Continued aspirin and statin. We'll maintain permissive hypertension. Initiated sliding scale insulin with hypoglycemic protocol. Place patient on hydralazine for systolic blood pressure over 200 with holding parameters. DVT prophylaxis with Lovenox. Patient does not recall criteria for endovascular intervention. Neurology recommended continued medical therapy, telemetry monitoring, tobacco cessation, and permissive hypertension. Echocardiogram was obtained and report is result below. Physical therapy, occupational therapy, and speech therapy evaluated patient throughout hospitalization will noting improvements, but also recommended the patient continue with skilled rehabilitation therapy. Patient developed isolated hypokalemia for which was supplemented. Started on carvedilol 6.25 mg twice daily for hypertension and tachycardia which was increased to 12.5 mg twice daily. Patient's vital signs improved. Patient showed significant clinical improvement sternal hospitalization and was stable for transfer to physical medicine and rehabilitation. DISCHARGE MEDICATIONS: Please see below. ALLERGIES: Please see below. PHYSICAL EXAMINATION ON DISCHARGE: VITAL SIGNS: Please see below. GENERAL: Well-nourished, well-developed male sitting in chair side upon evaluation this morning, no apparent distress HEENT: Atraumatic, normocephalic, PERRL, EOMI, oral mucosa appears pink and moist, nasal septum appears midline, mild right-sided lateral nystagmus NECK: Soft, supple, trachea midline, no lymphadenopathy appreciated CARDIOVASCULAR EXAMINATION: Regular rate and rhythm, normal S1 and S2, no murmur , rub, click appreciated RESPIRATORY EXAMINATION: Clear to auscultation bilaterally, adequate historian extremity airway excursion, no wheeze, rhonchi, crackles appreciated ABDOMINAL EXAMINATION: Flat, soft, nontender, nondistended, bowel sounds appreciated EXTREMITIES: peripheral pulses appreciated in upper and lower extremities bilaterally, equal, symmetrical, +2/4; muscle strength 5/5 in upper and lower extremities bilaterally SKIN: Warm, dry, intact; without edema NEUROLOGICAL EXAMINATION: Finger to nose on the right intact, tender to nose on the left improving, no tongue deviation, sensation improving to the left side of the body, no facial asymmetry appreciated PSYCHIATRIC EXAMINATION: Mood and affect appear appropriate LABORATORY DATA: Please see below. IMAGING: Transthoracic echocardiogram CONCLUSIONS: Technically difficult study. Unable to identify a potential intracardiac source of his embolic phenomenon. Mild concentric left ventricle hypertrophy with normal wall motion. Mildly dilated left atrium with Doppler evidence of an impairment of LV diastolic function and estimated mean left atrial pressure upper limits of normal to mildly increased. Normal right heart chamber sizes but Doppler sign of perhaps mild to moderate pulmonary hypertension. Normal IVC size and collapse against an elevated central venous pressure. Subtle aortic valvular sclerosis and mitral annular thickening. If a cardiac source is seriously suspect in this patient, we would recommend a transesophageal echocardiogram for better visualization. Carotid duplex IMPRESSION: No hemodynamically significant areas of narrowing or stenosis appreciated. Based on set standards narrowing falls within the less than 50% range. MRA of the brain without contrast IMPRESSION: Focal thrombosis of the mid portion of the basilar artery, with no significant flow seen in the right superior cerebellar artery. MRI of the brain without contrast IMPRESSION: Acute infarct in the posterior right lashay. MRA of the carotids without followed by with contrast IMPRESSION: High-grade focal stenosis versus short segment occlusion of the basilar artery. CT of the head without contrast IMPRESSION: 1. Mild chronic microvascular disease. 2. No evidence of acute intracranial pathology. PROGNOSIS: Stable. ACTIVITY: As tolerated. DIET: Consistent carbohydrate. DISCHARGE PLAN: See discharge instructions DISPOSITION: 62 D/T Rehab Facility. DISCHARGE INSTRUCTIONS: 1. Continue physical therapy and occupational therapy with physical medicine and rehabilitation. ITEMS TO FOLLOWUP ON ON OUTPATIENT: 1. Follow-up with primary care provider. 2. Follow-up with neurology. 3. Further management for diabetes. DISCHARGE CONDITION: Stable. TIME SPENT ON DISCHARGE: Greater than 30 minutes. Vital Signs/I&Os Vital Signs Date Time Temp Pulse Resp B/P (MAP) Pulse Ox O2 Delivery O2 Flow Rate FiO2 03/19/17 13:38 144/74 03/19/17 12:00 98.2 80 20 92 Room Air I&O- Last 24 Hours up to 6 AM 03/19/17 06:00 Intake Total 2760 ml Output Total 1375 ml Balance 1385 ml Laboratory Data Labs 24H Laboratory Tests 2 03/18/17 21:09: Bedside Glucose (Misc Panel) 199H 03/19/17 05:15: White Blood Count 8.5, Red Blood Count 5.42, Hemoglobin 17.1, Hematocrit 50.0, Mean Corpuscular Volume 92.1, Mean Corpuscular Hemoglobin 31.5, Mean Corpuscular Hemoglobin Concent 34.1, Red Cell Distribution Width 13.9, Platelet Count 101L, Neutrophils (%) (Auto) 65.8, Lymphocytes (%) (Auto) 23.4L, Monocytes (%) (Auto) 5.8H, Eosinophils (%) (Auto) 2.5, Basophils (%) (Auto) 0.6 , Neutrophils # (Auto) 5.6, Lymphocytes # (Auto) 2.0, Monocytes # (Auto) 0.5, Eosinophils # (Auto) 0.2, Basophils # (Auto) 0.0, Large Unclassified Cells % 1.8 , Large Unclassified Cells # 0.2, Anion Gap 7L, Glomerular Filtration Rate > 60.0, Blood Urea Nitrogen 15, Creatinine 0.87, Sodium Level 141, Potassium Level 3.7, Chloride Level 107, Carbon Dioxide Level 27, Calcium Level 8.8 03/19/17 11:23: Bedside Glucose (Misc Panel) 151H CBC/BMP Laboratory Tests 03/19/17 05:15 Red Blood Count 5.42, Mean Corpuscular Volume 92.1, Mean Corpuscular Hemoglobin 31.5, Mean Corpuscular Hemoglobin Concent 34.1, Red Cell Distribution Width 13.9 , Neutrophils (%) (Auto) 65.8, Lymphocytes (%) (Auto) 23.4 L, Monocytes (%) ( Auto) 5.8 H, Eosinophils (%) (Auto) 2.5, Basophils (%) (Auto) 0.6, Neutrophils # (Auto) 5.6, Lymphocytes # (Auto) 2.0, Monocytes # (Auto) 0.5, Eosinophils # ( Auto) 0.2, Basophils # (Auto) 0.0, Calcium Level 8.8 FSBS Laboratory Tests Test 5/10/17 21:09 03/19/17 11:23 Range/Units Bedside Glucose (Misc Panel) 199 151 70-105 MG/DL Discharge Medications Scheduled Aspirin (Aspirin EC) 81 Mg Tabec, 81 MG PO QAM Atorvastatin Calcium (Atorvastatin Calcium) 20 Mg Tab, 40 MG PO QHS Carvedilol (Carvedilol) 12.5 Mg Tab, 12.5 MG PO BID Clopidogrel Bisulfate (Clopidogrel) 75 Mg Tab, 75 MG PO DAILY Insulin Human Lispro (Humalog) 1 Units/0.01 Ml Inj, 0 UNITS SC AC Insulin Human Lispro (Humalog) 1 Units/0.01 Ml Inj, 0 UNITS SC QHS Nicotine (Nicotine Transdermal Syst) 21 Mg/24 Hr Dis, 1 PATCH TD DAILY Scheduled PRN Diphenhydramine HCl (Diphenhydramine HCl) 50 Mg Cap, 50 MG PO Q4H PRN for ALLERGIES, (Reported) Allergies Coded Allergies: No Known Drug Allergy (Verified Allergy, Unknown, 03/15/17) SONU BARRON-Alexander March 19, 2017 18:52
== END 2017-03-19 16:24 | DRG 45 ==
LOC: M PCU 20:50
PROVIDERS: ADMIT Internal Medicine Nephrology; ATTEND Internal Medicine
DX: I63.211 Cerebral infarction due to unspecified occlusion or stenosis of right vertebral artery (principal); G81.94 Hemiplegia, unspecified affecting left nondominant side; I10 Essential (primary) hypertension; E87.6 Hypokalemia; F17.210 Nicotine dependence, cigarettes, uncomplicated; E11.9 Type 2 diabetes mellitus without complications; J30.9 Allergic rhinitis, unspecified; G89.29 Other chronic pain; Z79.891 Long term (current) use of opiate analgesic; Z79.899 Other long term (current) drug therapy

== ENCOUNTER 2017-03-19 15:18 | Inpatient (IN) | payer MEDICAID ==
[~2017-03-19] VITALS: Ht 188 cm; Wt 107.3 kg
[~2017-03-19 15:18] MED LIST: ASPI81TAEC PO; ATOR1TAB21 PO; CARV12.5 PO; CLOP75TA2 PO; DIPH50CA PO; INSUHUMDS SC; NICO21PAT TD; NORC1TAB4 PO
[2017-03-19] MEDS ORDERED: FLEET ENEMA PR PRN (15:30)
[2017-03-19] MEDS ORDERED: MOM 30ML SUSPENSION UDC PO PRN (15:30)
[2017-03-19] MEDS ORDERED: GLUCAGON FOR INJ 1 MG VIAL (J1610) SC PRN (16:45)
[2017-03-19] MEDS ORDERED: GLUCOSE 4 GM CHEW TABLET PO PRN (16:45)
[2017-03-19] MEDS ORDERED: DEXTROSE 50% 50 ML SYRINGE IV PRN (16:45)
[2017-03-19 16:49] VITALS: BP 160/84
[2017-03-19] MEDS: HumaLOG INSULIN (NovoLOG) PER UNIT SC SCH ×2 (17:26→20:48)
[2017-03-19] MEDS ORDERED: hydrALAZINE INJ 20 MG/ML VIAL IV PRN (17:30)
[2017-03-19] MEDS ORDERED: **hydrALAZINE** 10 MG TAB PO PRN (17:45)
[2017-03-19] MEDS ORDERED: CARV12.5 PO (18:08)
[2017-03-19 20:30] VITALS: BP 158/84
[2017-03-19] MEDS: ATORVASTATIN 20 MG TAB PO SCH (20:47)
[2017-03-19] MEDS: ENOXAPARIN 30 MG/0.3 ML SYR (J1650) SC SCH (20:47)
[2017-03-19] MEDS: CARVedilol 12.5 MG TAB PO SCH (20:48)
[2017-03-19] MEDS: SENNA 8.6 MG TAB (SENOKOT) PO SCH ×2 (20:48→20:53)
[2017-03-20 06:06] VITALS: BP 148/84
[2017-03-20 07:20] LABS: BASO % 0.6 % (0.0-1.0); EOS # 0.2 K/mm3 (0.0-0.50); EOS % 2.3 % (0.0-3.0); LARGE UNSTAINED CELL # 0.1 K/mm3 (0.0-0.4); LARGE UNSTAINED CELL % 1.8 % (0.0-4.0); LYMPH # 2.1 K/mm3 (1.5-4.5); LYMPH % 28.6 % (24.0-44.0); MEAN CORPUSCULAR HEMOGLOBIN 30.7 pg (27.0-33.0); MEAN CORPUSCULAR HGB CONC 34.5 g/dl (32.0-36.5); MEAN CORPUSCULAR VOLUME 89.1 fl (80.0-96.0); MONO # 0.6 K/mm3 (0.0-0.8); MONO % 7.9 % (0.0-5.0); NEUTROPHILS # 4.1 K/mm3 (1.8-7.7); NEUTROPHILS % 58.8 % (36.0-66.0); RED CELL DISTRIBUTION WIDTH 13.9 % (11.5-14.5)
[2017-03-20 07:52] LABS: ALBUMIN 3.3 GM/DL (3.2-5.2); ALBUMIN/GLOBULIN RATIO 1.14 (1.00-1.93); ALKALINE PHOSPHATASE 40 U/L (45-117); ALT/SGPT 39 U/L (12-78); ANION GAP 7 MEQ/L (8-16); AST/SGOT 62 U/L (15-37); BLOOD UREA NITROGEN 15 MG/DL (7-18); CALCIUM LEVEL 8.4 MG/DL (8.5-10.1); CARBON DIOXIDE LEVEL 27 MEQ/L (21-32); CHLORIDE LEVEL 107 MEQ/L (98-107); CREATININE FOR GFR 0.84 MG/DL (0.70-1.30); GLOMERULAR FILTRATION RATE > 60.0 (>56); GLUCOSE, FASTING 183 MG/DL (70-105); POTASSIUM SERUM 3.5 MEQ/L (3.5-5.1); SODIUM LEVEL 141 MEQ/L (136-145); TOTAL PROTEIN 6.2 GM/DL (6.4-8.2)
[2017-03-20] MEDS: ENOXAPARIN 30 MG/0.3 ML SYR (J1650) SC SCH ×2 (08:30→20:37)
[2017-03-20] MEDS: HumaLOG INSULIN (NovoLOG) PER UNIT SC SCH ×4 (08:30→20:38)
[2017-03-20] MEDS: NICOTINE 21MG/24HR 1 EA TRANSDERMAL TD SCH (08:30)
[2017-03-20] MEDS: CLOPIDOGREL 75 MG TAB PO SCH (08:32)
[2017-03-20] MEDS: ASPIRIN 81 MG ENTERIC TAB PO SCH (08:32)
[2017-03-20] MEDS: CARVedilol 12.5 MG TAB PO SCH ×2 (08:32→20:37)
--- NOTE | 2017-03-20 13:50 | IPNPDOC ---
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 Patient without complaints of pain, GI / or musculoskeletal except for new knee abrasion when patient slipped while walking with a front wheel walker down to his left knee. ALLERGIES: See Below MEDICATIONS: Reviewed, see below. OBJECTIVE: VITAL SIGNS: Please see below. PHYSICAL EXAMINATION: GENERAL: Well-nourished well-developed middle-aged white male who is alert and well oriented with full strength on the right and good strength and fair to good control on the left upper and lower extremity. Patient is in no acute distress. HEENT: Normocephalic/atraumatic. CARDIOVASCULAR: Regular rate and rhythm with normal S1-S2 into L4 radial pulses. LUNGS: All alex clear to auscultation. ABDOMEN: Benign with normal bowel sounds in all quadrants. NEUROLOGICAL: As above. Patient with some impulsivity and decrease left body awareness. SKIN: Less than 1 cm diameter abrasion of the left upper garcia with half a centimeter diameter area of ecchymosis from his fall this morning. No other injuries found from the fall and patient without complaints. LABORATORY DATA: Reviewed. Please see below. MICROBIOLOGY: Please see below. IMAGING: No new imaging. DVT prophylaxis ordered?: Lovenox and aspirin with CAREY habirdie. ASSESSMENT AND PLAN: 1. Rehabilitation right pontine CVA: Patient starting assessments with physical and occupational therapy, he is a bit over enthusiastic and over rating of his skill level at this time. Patient needs to become more aware of his left sided coordination and awareness problems. He should do well with therapy and seems to have understood this causing him to misstep and go down to his left knee today and training. 2. Hypertension: Patient seems to be responding reasonably well to medications. 3. Baseline labs: CBC and electrolytes/renal function appeared to be normal. Elevated hemoglobin fasting at 183 due to his new onset diabetes. Calcium is mildly decreased at 8.4 in spite of albumin 3.3 Britta good except for slight increase in AST of 62. 4. Type 2 diabetes mellitus: Patient starting into more education and overall some mild elevation of glucose but we will continue to monitor this with medicine senior telecommunications consultant. TIME SPENT: Chart Review, examination and documentation greater than 25 minutes. Allergies Coded Allergies: No Known Drug Allergy (Verified Allergy, Unknown, 03/15/17) Vital Signs Vital Signs Date Time Temp Pulse Resp B/P (MAP) Pulse Ox O2 Delivery O2 Flow Rate FiO2 03/20/17 08:32 79 154/84 03/20/17 06:06 98.3 18 94 Room Air Laboratory Data CBC/BMP Laboratory Tests 03/20/17 06:26 Red Blood Count 5.05, Mean Corpuscular Volume 89.1, Mean Corpuscular Hemoglobin 30.7, Mean Corpuscular Hemoglobin Concent 34.5, Red Cell Distribution Width 13.9 , Neutrophils (%) (Auto) 58.8, Lymphocytes (%) (Auto) 28.6, Monocytes (%) (Auto ) 7.9 H, Eosinophils (%) (Auto) 2.3, Basophils (%) (Auto) 0.6, Neutrophils # ( Auto) 4.1, Lymphocytes # (Auto) 2.1, Monocytes # (Auto) 0.6, Eosinophils # (Auto ) 0.2, Basophils # (Auto) 0.0, Calcium Level 8.4 L, Aspartate Amino Transf (AST/ SGOT) 62 H, Alanine Aminotransferase (ALT/SGPT) 39, Alkaline Phosphatase 40 L, Total Bilirubin 1.0, Total Protein 6.2 L, Albumin 3.3 Labs 24H Laboratory Tests 2 03/19/17 16:37: Bedside Glucose (Misc Panel) 188H 03/19/17 19:40: Urine Appearance CLEAR, Urine Color YELLOW, Urine pH 5.0, Urine Specific [place] 1.024, Urine Protein NEGATIVE, Urine Glucose (UA) 3+H, Urine Ketones TRACEH, Urine Urobilinogen 2.0H, Urine Bilirubin NEGATIVE, Urine Leukocyte Esterase NEGATIVE, Urine Blood NEGATIVE, Urine Nitrite NEGATIVE, Urine WBC (Auto ) 1, Urine RBC (Auto) 2, Urine Hyaline Casts (Auto) 0, Urine Bacteria (Auto) 1+H , Urine Squamous Epithelial Cells 0, Urine Mucus (Auto) SMALL, Urine Sperm (Auto ) SMALLH 03/19/17 20:41: Bedside Glucose (Misc Panel) 196H 03/20/17 05:55: Bedside Glucose (Misc Panel) 175H 03/20/17 06:26: White Blood Count 7.0, Red Blood Count 5.05, Hemoglobin 15.5, Hematocrit 45.0, Mean Corpuscular Volume 89.1, Mean Corpuscular Hemoglobin 30.7, Mean Corpuscular Hemoglobin Concent 34.5, Red Cell Distribution Width 13.9, Platelet Count , Neutrophils (%) (Auto) 58.8, Lymphocytes (%) (Auto) 28.6, Monocytes (%) (Auto) 7.9H, Eosinophils (%) (Auto) 2.3, Basophils (%) (Auto) 0.6, Neutrophils # (Auto) 4.1, Lymphocytes # (Auto) 2.1, Monocytes # (Auto) 0.6, Eosinophils # ( Auto) 0.2, Basophils # (Auto) 0.0, Large Unclassified Cells % 1.8, Large Unclassified Cells # 0.1, Anion Gap 7L, Glomerular Filtration Rate > 60.0, Blood Urea Nitrogen 15, Creatinine 0.84, Sodium Level 141, Potassium Level 3.5, Chloride Level 107, Carbon Dioxide Level 27, Calcium Level 8.4L, Aspartate Amino Transf (AST/SGOT) 62H, Alanine Aminotransferase (ALT/SGPT) 39, Alkaline Phosphatase 40L, Total Bilirubin 1.0, Total Protein 6.2L, Albumin 3.3, Albumin/ Globulin Ratio 1.14 03/20/17 11:40: Bedside Glucose (Misc Panel) 130H Current Medications Current Medications Current Medications Aspirin (Ecotrin) 81 mg QAM PO Last administered on 03/20/17 08:32; Start 10/25 at 09:00; Stop 04/19/17 at 08:59 Atorvastatin Calcium (Lipitor) 40 mg QHS PO Last administered on 03/19/17 20: 47; Start 03/19/17 at 21:00; Stop 04/18/17 at 20:59 Carvedilol (COReg) 25 mg BID PO Last administered on 03/20/17 08:32; Start 09/25 at 21:00; Stop 04/18/17 at 20:59 Clopidogrel Bisulfate (PLAVix) 75 mg DAILY PO Last administered on 03/20/17 08 :32; Start 03/20/17 at 09:00; Stop 04/19/17 at 08:59 Dextrose (Dextrose 50%) 25 ml ASDIRECTED PRN IV SEE LABEL COMMENTS; Start 03/19 at 16:45; Stop 04/18/17 at 16:44 Enoxaparin Sodium (Lovenox) 30 mg BID SC Last administered on 03/20/17 08:30; Start 03/19/17 at 21:00; Stop 03/24/17 at 20:59 Glucagon (Glucagon) 1 mg ASDIRECTED PRN SC SEE LABEL COMMENTS; Start 03/19/17 at 16:45; Stop 04/18/17 at 16:44 Glucose (Glucose) 16 GM ASDIRECTED PRN PO SEE LABEL COMMENTS; Start 03/19/17 at 16:45; Stop 04/18/17 at 16:44 Hydralazine HCl (Apresoline) 5 mg Q8H PRN IV HYPERTENSION; Start 03/19/17 at 17 :30; Stop 04/18/17 at 17:29; Status UNV Hydralazine HCl (Apresoline) 10 mg Q8HP PRN PO HTN; Start 03/19/17 at 17:45; Stop 04/18/17 at 17:44 Insulin Human Lispro (HumaLOG INSULIN) AC SC Last administered on 03/20/17 12 :27; Start 03/19/17 at 17:30; Stop 04/18/17 at 17:29 Insulin Human Lispro (HumaLOG INSULIN) QHS SC ; Start 03/19/17 at 21:00; Stop 04/18/17 at 20:59 Magnesium Hydroxide (Milk Of Magnesia) 30 ml DAILYPRN PRN PO CONSTIPATION; Start 03/19/17 at 15:30; Stop 04/18/17 at 15:29 Nicotine (Nicoderm Cq 21mg) 1 patch DAILY TD Last administered on 03/20/17 08: 30; Start 03/20/17 at 09:00; Stop 04/19/17 at 08:59 Senna (Senokot) 1 tab QHS PO ; Start 03/19/17 at 21:00; Stop 04/18/17 at 20:59 Sodium Biphosphate/ Sodium Phosphate (Fleet Enema) 1 ea DAILYPRN PRN [place] CONSTIPATION; Start 03/19/17 at 15:30; Stop 04/18/17 at 15:29 CLARENCE NEFF MD March 20, 2017 13:49
[2017-03-20 14:00] VITALS: BP 140/84
--- NOTE | 2017-03-20 14:57 | PMRHPE ---
DATE OF ADMISSION: 03/19/2017 REASON FOR ADMISSION/DIAGNOSES: 1. Rehabilitation of right lashay cerebrovascular accident (CVA) with left hemiparesis, decreased coordination and balance. 2. Atherosclerotic cardiovascular disease, including hypertension. 3. Newly discovered type 2 diabetes mellitus. 4. Nicotine dependence. PAST MEDICAL HISTORY: Includes: 1. Hypertension. 2. Osteoarthritis. PAST SURGICAL HISTORY: Includes: Bilateral knee surgeries. SOCIAL HISTORY: The patient has been a pack a day smoker until this admission. He drinks occasional alcohol. Denies using illicit drugs. ALLERGIES: He has no known drug allergies. The patient was not on any medications at home. At the time of admission to the rehabilitation unit, the patient is on Plavix, Lovenox, aspirin, Nicoderm patch, hydralazine, insulin sliding scale with Humalog, Senokot-S, atorvastatin for cholesterol, Coreg for hypertension. I have added magnesium hydroxide and Fleets enema for constipation. REVIEW OF SYSTEMS: 10-point review of systems negative except for the problems with left-sided weakness, discoordination, and balance noted above. PHYSICAL EXAMINATION: Blood pressure 160/91, pulse 80, respirations 20, pulse oximetry 92%, and temperature 98.2. The patient is a well-nourished, well-developed, middle-aged, white male who is in no acute distress, sitting up when I first saw him at bedside in a chair and then just recently after transferred to our unit in bed. HEENT: Normocephalic / atraumatic, wearing his cap. Hair is graying. Pupils are equal, round, and reactive to light and accommodation. Extraocular motions are intact and vision is conjugate. No notable lesion of the oropharynx. No deviation of the septum. No masses or drainage from the nose. NECK: Supple. LUNGS: Clear in all alex to auscultation. CORONARY: Shows a regular rate and rhythm with normal S1, S2, and 3/4 bilateral radial pulses with good perfusion in the upper extremities. ABDOMEN: Mildly obese but nontender with no palpable masses and normal bowel sounds in all quadrants. EXTREMITIES: With normal functional range of motion of bilateral upper and lower extremities. NEUROLOGIC: The patient is alert and oriented times four. Speech is clear, coherent and appropriate. Affect is pleasant and cooperative. Memory is good. The patient shows 4+ to 5- strength is his left upper and lower extremity with some trouble with placement, especially coordinating and his rapid alternating motion in the left hand are also decreased but within normal for these and with 5/5 strength in the right upper and lower extremity. Light touch is grossly intact in bilateral upper and lower extremities, as is vibration but the patient does note some pins and needle paresthesias in the left upper and lower extremities. LABORATORY DATA: CBC essentially normal except for low platelet count at 101, 000. Basic metabolic panel shows elevated blood sugar of 194, otherwise within normal limits. MRI of the brain shows a right pontine infarct, consistent with an embolic source and some microvascular change diffusely. ASSESSMENT AND PLAN: 1. Rehabilitation of right lashay cerebrovascular accident (CVA): The patient's main deficits are his balance and coordination which are impacting on his safety in activities of daily living (ADLs) and mobility. His endurance is very good and his ability to walk with support such as a walker is good. However, when transitioning to stairs or uneven surfaces his discoordination problem is likely to case the patient to have frequent falls and additional injuries. Therefore, he needs further work on building his coordination skills in ADLs and uneven terrain, stairs, inclines , and other type of non-flat areas to be safe to return to home. I feel he would benefit from physical and occupational therapy three hours per day. He certainly has the endurance for this. I feel this could not well be accomplished in half-way facility as the patient's blood pressure has been recently markedly elevated as well as concerns about cardiac rhythm. Therefore, he does need ongoing cardiac, neurological, and general medical evaluation and followup. 2. New onset diabetes mellitus, type 2: We will go ahead and continue working with the patient in monitoring and continue his education through nursing on managing his diabetes. At this time, he remains on a sliding scale but will probably transition from this as he prepares to go home. 3. Atherosclerotic cardiovascular disease, including hyperlipidemia and hypertension: As noted above, the patient needs ongoing followup and management and will continue medication previously noted for this. He may require some further hydralazine treatment and therefore, we will keep the current IV access. POSTADMISSION PHYSICIAN EVALUATION: I feel the patient's status is consistent with our prior evaluations and notes and the preadmission screening process. I feel, as noted above, that he is likely to benefit from acute intensive rehabilitation and will be able to participate in three hours of therapy per day. I anticipate the patient will benefit from this to allow his return to home. I feel his prognosis is good. I estimate his length of stay at 7-10 days. Time spent on chart review, history and physical, and documentation: Greater than 70 minutes. MTDD
[2017-03-20 20:33] VITALS: BP 172/90
[2017-03-20] MEDS: ATORVASTATIN 20 MG TAB PO SCH (20:38)
[2017-03-20] MEDS: SENNA 8.6 MG TAB (SENOKOT) PO SCH ×2 (20:38→20:40)
[2017-03-20 22:00] VITALS: BP 160/90
[2017-03-21 02:00] VITALS: BP 158/88
[2017-03-21 06:00] VITALS: BP 174/98
[2017-03-21] MEDS: CARVedilol 12.5 MG TAB PO SCH ×2 (07:02→20:57)
[2017-03-21] MEDS: ASPIRIN 81 MG ENTERIC TAB PO SCH (08:13)
[2017-03-21] MEDS: ENOXAPARIN 30 MG/0.3 ML SYR (J1650) SC SCH ×2 (08:13→20:58)
[2017-03-21] MEDS: LISINOPRIL 5 MG TAB PO SCH (08:13)
[2017-03-21] MEDS: HumaLOG INSULIN (NovoLOG) PER UNIT SC SCH ×4 (08:13→20:51)
[2017-03-21] MEDS: CLOPIDOGREL 75 MG TAB PO SCH (08:13)
[2017-03-21] MEDS: NICOTINE 21MG/24HR 1 EA TRANSDERMAL TD SCH (08:14)
[2017-03-21 14:00] VITALS: BP 136/70
[2017-03-21 20:00] VITALS: BP 170/81
[2017-03-21] MEDS: ATORVASTATIN 20 MG TAB PO SCH (20:57)
[2017-03-21] MEDS: SENNA 8.6 MG TAB (SENOKOT) PO SCH (21:00)
[2017-03-21 23:16] VITALS: BP 138/78
[2017-03-22 06:00] VITALS: BP 154/88
[2017-03-22 06:29] LABS: MEAN CORPUSCULAR HEMOGLOBIN 30.4 pg (27.0-33.0); MEAN CORPUSCULAR HGB CONC 34.7 g/dl (32.0-36.5); MEAN CORPUSCULAR VOLUME 87.7 fl (80.0-96.0); RED CELL DISTRIBUTION WIDTH 13.6 % (11.5-14.5); WHITE BLOOD COUNT 6.4 K/mm3 (4.0-10.0)
[2017-03-22] MEDS: HumaLOG INSULIN (NovoLOG) PER UNIT SC SCH ×4 (08:10→20:33)
[2017-03-22] MEDS: ASPIRIN 81 MG ENTERIC TAB PO SCH (08:10)
[2017-03-22] MEDS: CLOPIDOGREL 75 MG TAB PO SCH (08:10)
[2017-03-22] MEDS: LISINOPRIL 5 MG TAB PO SCH (08:10)
[2017-03-22] MEDS: ENOXAPARIN 30 MG/0.3 ML SYR (J1650) SC SCH ×3 (08:11→20:35)
[2017-03-22] MEDS: CARVedilol 12.5 MG TAB PO SCH ×2 (08:11→20:35)
[2017-03-22] MEDS: NICOTINE 21MG/24HR 1 EA TRANSDERMAL TD SCH (08:11)
[2017-03-22 14:00] VITALS: BP 154/84
[2017-03-22 20:00] VITALS: BP 161/82
[2017-03-22] MEDS: SENNA 8.6 MG TAB (SENOKOT) PO SCH (20:26)
[2017-03-22] MEDS: ATORVASTATIN 20 MG TAB PO SCH (20:34)
[2017-03-23 06:00] VITALS: BP 150/79
[2017-03-23] MEDS: HumaLOG INSULIN (NovoLOG) PER UNIT SC SCH ×4 (08:33→20:52)
[2017-03-23] MEDS: ASPIRIN 81 MG ENTERIC TAB PO SCH (08:33)
[2017-03-23] MEDS: CARVedilol 12.5 MG TAB PO SCH ×2 (08:33→20:52)
[2017-03-23] MEDS: CLOPIDOGREL 75 MG TAB PO SCH (08:33)
[2017-03-23] MEDS: ENOXAPARIN 30 MG/0.3 ML SYR (J1650) SC SCH ×2 (08:33→20:52)
[2017-03-23] MEDS: NICOTINE 21MG/24HR 1 EA TRANSDERMAL TD SCH (08:34)
[2017-03-23] MEDS: LISINOPRIL 5 MG TAB PO SCH (08:34)
--- NOTE | 2017-03-23 11:48 | IPNPDOC ---
Loading Machine Adjuster Progress Note DATE OF SERVICE: 03/23/17 DATE OF ADMISSION: March 19, 2017 at 16:25 INPATIENT REHABILITATION ADMISSION DAY: #4 SUBJECTIVE: Patient is a 56-year-old white male with right pontine CVA with left mack-paresis and trouble with coordination of left body to right body. Patient without complaints today other then having bumped his knee against the day bed in his room. No GI/, pain or other complaints. ALLERGIES: See Below MEDICATIONS: Reviewed, see below. OBJECTIVE: VITAL SIGNS: Please see below. PHYSICAL EXAMINATION: GENERAL: Well-nourished well-developed middle-aged white male who is alert and well oriented. Patient is in minimal to no acute distress. HEENT: Normocephalic/atraumatic. CARDIOVASCULAR: Regular rate and rhythm with normal S1 and S2. 2/4 pulses and bilateral radials. LUNGS: All alex clear to auscultation. ABDOMEN: Benign with normal bowel sounds. NEUROLOGICAL: Patient was uncooperative and in good spirits. He is very talkative but it is clear and coherent. Memory is good. Mild paresis of left upper and lower extremity mainly a problem as coordination of movement. SKIN: Patient with 2 small bruises on left knee region inferiorly. These are about 1/2 cm in diameter. LABORATORY DATA: Reviewed. Please see below. MICROBIOLOGY: Please see below. IMAGING: No new imaging. DVT prophylaxis ordered?: Plavix and Lovenox. ASSESSMENT AND PLAN: 1. Rehabilitation of right pontine CVA: Patient participating vigorously in therapy and is making progress especially on strength and endurance. Pain deficits or balance and coordination which limits his safety. His endurance and gaiting with a walker are doing very well, but his risk of falling remains fairly elevated due to distractability and decreased balance and coordination. Per team discussion/consensus ELOS is 10 to 14 days with Target D/C to home on . 2. Anemia: Patient dropped from 45-39 on his hematocrit between the th and the th. I will go ahead and repeat a CMP with his next CBC on 03/25. But for now vital signs are stable. 3. Diabetes mellitus type 2: This is remaining fairly stable. TIME SPENT: Chart Review, examination and documentation greater than 35 minutes. Allergies Coded Allergies: No Known Drug Allergy (Verified Allergy, Unknown, 03/15/17) Vital Signs Vital Signs Date Time Temp Pulse Resp B/P (MAP) Pulse Ox O2 Delivery O2 Flow Rate FiO2 03/23/17 08:34 150/79 03/23/17 08:33 87 03/23/17 06:00 98.9 16 97 Room Air Laboratory Data Labs 24H Laboratory Tests 2 03/22/17 18:10: Bedside Glucose (Misc Panel) 205H 03/22/17 20:33: Bedside Glucose (Misc Panel) 147H 03/23/17 06:44: Bedside Glucose (Misc Panel) 134H Current Medications Current Medications Current Medications Aspirin (Ecotrin) 81 mg QAM PO Last administered on 03/23/17 08:33; Start 10/25 at 09:00; Stop 04/19/17 at 08:59 Atorvastatin Calcium (Lipitor) 40 mg QHS PO Last administered on 03/22/17 20: 34; Start 03/19/17 at 21:00; Stop 04/18/17 at 20:59 Carvedilol (COReg) 25 mg BID PO Last administered on 03/23/17 08:33; Start 09/25 at 21:00; Stop 04/18/17 at 20:59 Clopidogrel Bisulfate (PLAVix) 75 mg DAILY PO Last administered on 03/23/17 08 :33; Start 03/20/17 at 09:00; Stop 04/19/17 at 08:59 Dextrose (Dextrose 50%) 25 ml ASDIRECTED PRN IV SEE LABEL COMMENTS; Start 03/19 at 16:45; Stop 04/18/17 at 16:44 Enoxaparin Sodium (Lovenox) 30 mg BID SC Last administered on 03/23/17 08:33; Start 03/19/17 at 21:00; Stop 03/24/17 at 20:59 Glucagon (Glucagon) 1 mg ASDIRECTED PRN SC SEE LABEL COMMENTS; Start 03/19/17 at 16:45; Stop 04/18/17 at 16:44 Glucose (Glucose) 16 GM ASDIRECTED PRN PO SEE LABEL COMMENTS; Start 03/19/17 at 16:45; Stop 04/18/17 at 16:44 Hydralazine HCl (Apresoline) 5 mg Q8H PRN IV HYPERTENSION; Start 03/19/17 at 17 :30; Stop 04/18/17 at 17:29; Status UNV Hydralazine HCl (Apresoline) 10 mg Q8HP PRN PO HTN; Start 03/19/17 at 17:45; Stop 04/18/17 at 17:44 Insulin Human Lispro (HumaLOG INSULIN) AC SC Last administered on 03/20/17 17 :02; Start 03/19/17 at 17:30; Stop 03/21/17 at 07:34; Status DC Insulin Human Lispro (HumaLOG INSULIN) QHS SC ; Start 03/19/17 at 21:00; Stop 03/21/17 at 07:34; Status DC Insulin Human Lispro (HumaLOG INSULIN) SEE PROTOCOL TABLE AC SC Last administered on 03/23/17 08:33; Start 03/21/17 at 07:30; Stop 04/20/17 at 07:29 Insulin Human Lispro (HumaLOG INSULIN) SEE PROTOCOL TABLE QHS SC ; Start at 21:00; Stop 04/20/17 at 20:59 Lisinopril (Prinivil) 5 mg DAILY PO Last administered on 03/23/17 08:34; Start 03/21/17 at 09:00; Stop 04/20/17 at 08:59 Magnesium Hydroxide (Milk Of Magnesia) 30 ml DAILYPRN PRN PO CONSTIPATION; Start 03/19/17 at 15:30; Stop 04/18/17 at 15:29 Nicotine (Nicoderm Cq 21mg) 1 patch DAILY TD Last administered on 03/23/17 08: 34; Start 03/20/17 at 09:00; Stop 04/19/17 at 08:59 Senna (Senokot) 1 tab QHS PO ; Start 03/19/17 at 21:00; Stop 04/18/17 at 20:59 Sodium Biphosphate/ Sodium Phosphate (Fleet Enema) 1 ea DAILYPRN PRN [place] CONSTIPATION; Start 03/19/17 at 15:30; Stop 04/18/17 at 15:29 LCARENCE NEFF MD March 23, 2017 11:48
[2017-03-23 14:00] VITALS: BP 181/87
--- NOTE | 2017-03-23 14:30 | IPNPDOC ---
Subjective Date Seen The patient was seen on 03/23/17. Subjective Chief Complaint/HPI The patient is a 56-year-old male admitted with a reason for visit of Stroke- Right Raymond/Right Hemiparesis. Events since last encounter Pt states he is doing well. Pins and needle sensation left side, slightly less. Feels he is gaining strength. ENT: Denies: Head Aches, Ear Pain, Dysphagia Pulmonary: Denies: Dyspnea, Cough Cardiovascular: Denies: Chest Pain, Palpitations, Orthopnea, Paroxysmal Noc. Dyspnea, Lt Headedness Gastrointestinal: Denies: Nausea, Vomiting, Abdominal Pain, Diarrhea, Constipation Genitourinary: Denies: Dysuria, Frequency, Incontinence, Retention Objective Physical Examination General Exam: Positive: Alert Eye Exam: Positive: PERRLA ENT Exam: Positive: Atraumatic Neck Exam: Positive: Supple Chest Exam: Positive: Clear to auscultation, Normal air movement Heart Exam: Positive: Rate Normal, Regular Rhythm, Normal S1, Normal S2, Negative: Murmurs, Rubs Abdomen Exam: Positive: Normal bowel sounds, Soft, Negative: Tenderness, Hepatospenomegaly Skin Exam: Positive: Nl turgor and temperature Assessment /Plan Problems (1) Stroke Problem Text: * ARU as per Dr Saunders * PT/OT * ASA 81/Plavix/statin * Outpt f/u with Neuro. (2) HTN (hypertension) Problem Text: * Coreg * lisinopril * Hydralazine with hold paramters (3) Diabetes Problem Text: * diet * SSI * 137-147 Plan/VTE VTE Prophylaxis Ordered?: Yes (Lovenox) Disposition as per ARU VS, I&O, 24H, [place] Vital Signs/I&O Vital Signs Date Time Temp Pulse Resp B/P (MAP) Pulse Ox O2 Delivery O2 Flow Rate FiO2 03/23/17 14:00 97.8 87 18 181/87 (118) 98 Room Air I&O- Last 24 Hours up to 6 AM 03/23/17 06:00 Intake Total 600 ml Output Total 1477 ml Balance -877 ml Laboratory Data 24H LABS Laboratory Tests 2 03/22/17 18:10: Bedside Glucose (Misc Panel) 205H 03/22/17 20:33: Bedside Glucose (Misc Panel) 147H 03/23/17 06:44: Bedside Glucose (Misc Panel) 134H 03/23/17 12:16: Bedside Glucose (Misc Panel) 137H Jaqueline Maddox March 23, 2017 14:30
[2017-03-23 20:00] VITALS: BP 135/78
[2017-03-23] MEDS: ATORVASTATIN 20 MG TAB PO SCH (20:51)
[2017-03-23] MEDS: SENNA 8.6 MG TAB (SENOKOT) PO SCH ×2 (20:51→20:56)
[2017-03-24 06:00] VITALS: BP 146/77
[2017-03-24] MEDS: HumaLOG INSULIN (NovoLOG) PER UNIT SC SCH ×4 (08:00→19:48)
[2017-03-24] MEDS: ENOXAPARIN 30 MG/0.3 ML SYR (J1650) SC SCH ×2 (09:15→20:05)
[2017-03-24] MEDS: CLOPIDOGREL 75 MG TAB PO SCH (09:17)
[2017-03-24] MEDS: ASPIRIN 81 MG ENTERIC TAB PO SCH (09:17)
[2017-03-24] MEDS: NICOTINE 21MG/24HR 1 EA TRANSDERMAL TD SCH (09:17)
[2017-03-24] MEDS: CARVedilol 12.5 MG TAB PO SCH ×2 (09:18→20:06)
[2017-03-24] MEDS: LISINOPRIL 5 MG TAB PO SCH (09:19)
--- NOTE | 2017-03-24 10:07 | IPNPDOC ---
Boiler Tender Progress Note DATE OF SERVICE: 03/24/17 DATE OF ADMISSION: March 19, 2017 at 16:25 INPATIENT REHABILITATION ADMISSION DAY: #5 SUBJECTIVE: Patient is a 56-year-old white male with right pontine CVA with left hemiparesis/discoordination and decreased balance. Patient without complaints today. Reports feeling good. He notes feeling tight in his muscles on the left side of the body but not having the pins and needle tingling on the left but sensation is actually more normal feeling to him on the left body. ALLERGIES: See Below MEDICATIONS: Reviewed, see below. OBJECTIVE: VITAL SIGNS: Please see below. PHYSICAL EXAMINATION: GENERAL: Well-nourished well-developed middle-aged white male who is alert and oriented 4. Speech is clear coherent and appropriate. Affect is less uncooperative with patient in good spirits. Patient is in no acute distress. HEENT: Normocephalic/atraumatic. CARDIOVASCULAR: Regular rate and rhythm with normal S1 and S2. 2 out 4 radial pulses. LUNGS: All alex clear to auscultation. ABDOMEN: Benign with normal bowel sounds throughout. NEUROLOGICAL: As noted above. SKIN: Left knee contusions healing. LABORATORY DATA: Reviewed. Please see below. DVT prophylaxis ordered?: Plavix and Lovenox with CAREY beard. ASSESSMENT AND PLAN: 1. Rehabilitation right pontine CVA: Patient working very hard with physical occupational therapy and gaining endurance. However his balance and coordination are things were more concerned about further patient's safety. We will continue to have patient work on over learning mobility transfer and ADL skills retraining reinforce safe technique and develop more balance and coordination. 2. DVT prophylaxis: Patient tolerating Plavix and Lovenox well. 3. Type 2 DM: Blood sugars in general have been good and stable for this new onset type II diabetic. 4. Hypertension: Patient elevated this morning before medications and first measurement after was still systolic blood pressure 140. We will continue to watch. But in general systolic blood pressures of around 140 or good for healing post CVA. TIME SPENT: Chart Review, examination and documentation greater than 25 minutes. Allergies Coded Allergies: No Known Drug Allergy (Verified Allergy, Unknown, 03/15/17) Vital Signs Vital Signs Date Time Temp Pulse Resp B/P (MAP) Pulse Ox O2 Delivery O2 Flow Rate FiO2 03/24/17 09:18 87 140/100 03/24/17 06:00 98.5 18 95 Room Air Laboratory Data Labs 24H Laboratory Tests 2 03/23/17 12:16: Bedside Glucose (Misc Panel) 137H 03/23/17 16:57: Bedside Glucose (Misc Panel) 121H 03/23/17 19:57: Bedside Glucose (Misc Panel) 131H 03/24/17 05:58: Bedside Glucose (Misc Panel) 131H Current Medications Current Medications Current Medications Aspirin (Ecotrin) 81 mg QAM PO Last administered on 03/24/17 09:17; Start 10/25 at 09:00; Stop 04/19/17 at 08:59 Atorvastatin Calcium (Lipitor) 40 mg QHS PO Last administered on 03/23/17 20: 51; Start 03/19/17 at 21:00; Stop 04/18/17 at 20:59 Carvedilol (COReg) 25 mg BID PO Last administered on 03/24/17 09:18; Start 09/25 at 21:00; Stop 04/18/17 at 20:59 Clopidogrel Bisulfate (PLAVix) 75 mg DAILY PO Last administered on 03/24/17 09 :17; Start 03/20/17 at 09:00; Stop 04/19/17 at 08:59 Dextrose (Dextrose 50%) 25 ml ASDIRECTED PRN IV SEE LABEL COMMENTS; Start 03/19 at 16:45; Stop 04/18/17 at 16:44 Enoxaparin Sodium (Lovenox) 30 mg BID SC Last administered on 03/24/17 09:15; Start 03/19/17 at 21:00; Stop 03/28/17 at 20:59 Glucagon (Glucagon) 1 mg ASDIRECTED PRN SC SEE LABEL COMMENTS; Start 03/19/17 at 16:45; Stop 04/18/17 at 16:44 Glucose (Glucose) 16 GM ASDIRECTED PRN PO SEE LABEL COMMENTS; Start 03/19/17 at 16:45; Stop 04/18/17 at 16:44 Hydralazine HCl (Apresoline) 5 mg Q8H PRN IV HYPERTENSION; Start 03/19/17 at 17 :30; Stop 04/18/17 at 17:29; Status UNV Hydralazine HCl (Apresoline) 10 mg Q8HP PRN PO HTN; Start 03/19/17 at 17:45; Stop 04/18/17 at 17:44 Insulin Human Lispro (HumaLOG INSULIN) AC SC Last administered on 03/20/17 17 :02; Start 03/19/17 at 17:30; Stop 03/21/17 at 07:34; Status DC Insulin Human Lispro (HumaLOG INSULIN) QHS SC ; Start 03/19/17 at 21:00; Stop 03/21/17 at 07:34; Status DC Insulin Human Lispro (HumaLOG INSULIN) SEE PROTOCOL TABLE AC SC Last administered on 03/24/17 08:00; Start 03/21/17 at 07:30; Stop 04/20/17 at 07:29 Insulin Human Lispro (HumaLOG INSULIN) SEE PROTOCOL TABLE QHS SC ; Start at 21:00; Stop 04/20/17 at 20:59 Lisinopril (Prinivil) 5 mg DAILY PO Last administered on 03/24/17 09:19; Start 03/21/17 at 09:00; Stop 04/20/17 at 08:59 Magnesium Hydroxide (Milk Of Magnesia) 30 ml DAILYPRN PRN [place] CONSTIPATION; Start 03/19/17 at 15:30; Stop 04/18/17 at 15:29 Nicotine (Nicoderm Cq 21mg) 1 patch DAILY TD Last administered on 03/24/17 09: 17; Start 03/20/17 at 09:00; Stop 04/19/17 at 08:59 Senna (Senokot) 1 tab QHS PO ; Start 03/19/17 at 21:00; Stop 04/18/17 at 20:59 Sodium Biphosphate/ Sodium Phosphate (Fleet Enema) 1 ea DAILYPRN PRN [place] CONSTIPATION; Start 03/19/17 at 15:30; Stop 04/18/17 at 15:29 CLARENCE NEFF MD March 24, 2017 10:07
[2017-03-24 14:00] VITALS: BP 133/68
[2017-03-24] MEDS: SENNA 8.6 MG TAB (SENOKOT) PO SCH (19:48)
[2017-03-24 19:51] VITALS: BP 164/83
[2017-03-24] MEDS: ATORVASTATIN 20 MG TAB PO SCH (20:05)
[2017-03-25 05:59] VITALS: BP 159/84
[2017-03-25 07:11] LABS: MEAN CORPUSCULAR HGB CONC 34.8 g/dl (32.0-36.5); RED CELL DISTRIBUTION WIDTH 13.5 % (11.5-14.5); WHITE BLOOD COUNT 7.3 K/mm3 (4.0-10.0)
[2017-03-25 07:28] LABS: ALBUMIN 3.1 GM/DL (3.2-5.2); ALBUMIN/GLOBULIN RATIO 1.03 (1.00-1.93); ALKALINE PHOSPHATASE 40 U/L (45-117); ALT/SGPT 50 U/L (12-78); ANION GAP 8 MEQ/L (8-16); AST/SGOT 30 U/L (15-37); BILIRUBIN,TOTAL 0.6 MG/DL (0.2-1.0); BLOOD UREA NITROGEN 10 MG/DL (7-18); CALCIUM LEVEL 7.7 MG/DL (8.5-10.1); CARBON DIOXIDE LEVEL 25 MEQ/L (21-32); CHLORIDE LEVEL 108 MEQ/L (98-107); CREATININE FOR GFR 0.69 MG/DL (0.70-1.30); GLOMERULAR FILTRATION RATE > 60.0 (>56); GLUCOSE, FASTING 164 MG/DL (70-105); POTASSIUM SERUM 3.6 MEQ/L (3.5-5.1); SODIUM LEVEL 141 MEQ/L (136-145); TOTAL PROTEIN 6.1 GM/DL (6.4-8.2)
[2017-03-25] MEDS: ASPIRIN 81 MG ENTERIC TAB PO SCH (08:11)
[2017-03-25] MEDS: HumaLOG INSULIN (NovoLOG) PER UNIT SC SCH ×4 (08:11→21:00)
[2017-03-25] MEDS: CLOPIDOGREL 75 MG TAB PO SCH (08:11)
[2017-03-25] MEDS: LISINOPRIL 5 MG TAB PO SCH (08:11)
[2017-03-25] MEDS: NICOTINE 21MG/24HR 1 EA TRANSDERMAL TD SCH (08:12)
[2017-03-25] MEDS: ENOXAPARIN 30 MG/0.3 ML SYR (J1650) SC SCH ×2 (08:12→20:50)
[2017-03-25] MEDS: CARVedilol 12.5 MG TAB PO SCH ×2 (08:12→20:49)
--- NOTE | 2017-03-25 11:17 | IPNPDOC ---
Freight Conductor Progress Note DATE OF SERVICE: 03/25/17 DATE OF ADMISSION: March 19, 2017 at 16:25 INPATIENT REHABILITATION ADMISSION DAY: #6 SUBJECTIVE: Patient is a 56-year-old white male with a pontine CVA. Patient reports feeling good having no pain or other complaints. He notes some improvement in sensation on his left upper and lower extremity as a pins and needles sensations have gone down. ALLERGIES: See Below MEDICATIONS: Reviewed, see below. OBJECTIVE: VITAL SIGNS: Please see below. PHYSICAL EXAMINATION: GENERAL: Well-nourished well-developed middle-aged white male who is alert and oriented 4. Speech is clear coherent and appropriate. Affect is pleasant and cooperative the patient in good mood patient is in minimal to no acute distress. HEENT: Normocephalic/atraumatic. CARDIOVASCULAR: Regular rate and rhythm with normal S1-S2 in 2 out of 4 radial pulses. LUNGS: All alex clear to auscultation. ABDOMEN: Benign with normal bowel sounds. NEUROLOGICAL: As above with some continued mild weakness in the left upper and lower extremity and decreased coordination of 2 handed activities. SKIN: Contusions of left knee continued to improve. Abrasion above the left garcia as almost cleared with normal skin growth. LABORATORY DATA: Reviewed. Please see below. MICROBIOLOGY: Please see below. IMAGING: No new imaging. DVT prophylaxis ordered?: Patient continues on Plavix and Lovenox with CAREY hose. Patient also ambulating frequently for moderate distances. ASSESSMENT AND PLAN: 1. Rehabilitation of right pontine CVA: Patient working hard in therapies and continue progress with PT and OT. No changes in overall plan with anticipated date of discharge April 01 to home with family. 2. Anemia: Today's H&H was decreased to the point of reaching a very mild anemia with 13.8 for hemoglobin 39.6% for hematocrit. Thrombose pain he is improved at 100,000 platelets. 3. Type 2 diabetes mellitus: Fasting blood sugar 164 today and other fingersticks tend to be in the 100 range. So it appears that the patient is under fairly good control at this time. 4. Hypertension: During her last 36 hours the patient has tended to run systolic blood pressures in the 150s just slightly increased. Patient reports drinking about 6 cups of coffee per day with caffeine 5 asking him to cut back to 2 cups per day: 1 cup with breakfast and 1 cup with lunch. TIME SPENT: Chart Review, examination and documentation greater than 20 minutes. Allergies Coded Allergies: No Known Drug Allergy (Verified Allergy, Unknown, 03/15/17) Vital Signs Vital Signs Date Time Temp Pulse Resp B/P (MAP) Pulse Ox O2 Delivery O2 Flow Rate FiO2 03/25/17 08:12 75 159/84 03/25/17 05:59 98.1 18 95 Room Air Laboratory Data CBC/BMP Laboratory Tests 03/25/17 06:37 Red Blood Count 4.45, Mean Corpuscular Volume 89.0, Mean Corpuscular Hemoglobin 31.0, Mean Corpuscular Hemoglobin Concent 34.8, Red Cell Distribution Width 13.5 , Calcium Level 7.7 L, Aspartate Amino Transf (AST/SGOT) 30, Alanine Aminotransferase (ALT/SGPT) 50, Alkaline Phosphatase 40 L, Total Bilirubin 0.6, Total Protein 6.1 L, Albumin 3.1 L Labs 24H Laboratory Tests 2 03/24/17 11:40: Bedside Glucose (Misc Panel) 130H 03/24/17 17:07: Bedside Glucose (Misc Panel) 170H 03/24/17 19:36: Bedside Glucose (Misc Panel) 157H 03/25/17 05:48: Bedside Glucose (Misc Panel) 175H 03/25/17 06:37: Anion Gap 8, Glomerular Filtration Rate > 60.0, Blood Urea Nitrogen 10, Creatinine 0.69L, Sodium Level 141, Potassium Level 3.6, Chloride Level 108H, Carbon Dioxide Level 25, Calcium Level 7.7L, Aspartate Amino Transf (AST/SGOT) 30, Alanine Aminotransferase (ALT/SGPT) 50, Alkaline Phosphatase 40L, Total Bilirubin 0.6, Total Protein 6.1L, Albumin 3.1L, Albumin/Globulin Ratio 1.03 Current Medications Current Medications Current Medications Aspirin (Ecotrin) 81 mg QAM PO Last administered on 03/25/17 08:11; Start 10/25 at 09:00; Stop 04/19/17 at 08:59 Atorvastatin Calcium (Lipitor) 40 mg QHS PO Last administered on 03/24/17 20: 05; Start 03/19/17 at 21:00; Stop 04/18/17 at 20:59 Carvedilol (COReg) 25 mg BID PO Last administered on 03/25/17 08:12; Start 09/25 at 21:00; Stop 04/18/17 at 20:59 Clopidogrel Bisulfate (PLAVix) 75 mg DAILY PO Last administered on 03/25/17 08 :11; Start 03/20/17 at 09:00; Stop 04/19/17 at 08:59 Dextrose (Dextrose 50%) 25 ml ASDIRECTED PRN IV SEE LABEL COMMENTS; Start 03/19 at 16:45; Stop 04/18/17 at 16:44 Enoxaparin Sodium (Lovenox) 30 mg BID SC Last administered on 03/25/17 08:12; Start 03/19/17 at 21:00; Stop 03/28/17 at 20:59 Glucagon (Glucagon) 1 mg ASDIRECTED PRN SC SEE LABEL COMMENTS; Start 03/19/17 at 16:45; Stop 04/18/17 at 16:44 Glucose (Glucose) 16 GM ASDIRECTED PRN PO SEE LABEL COMMENTS; Start 03/19/17 at 16:45; Stop 04/18/17 at 16:44 Hydralazine HCl (Apresoline) 5 mg Q8H PRN IV HYPERTENSION; Start 03/19/17 at 17 :30; Stop 04/18/17 at 17:29; Status UNV Hydralazine HCl (Apresoline) 10 mg Q8HP PRN PO HTN; Start 03/19/17 at 17:45; Stop 04/18/17 at 17:44 Insulin Human Lispro (HumaLOG INSULIN) AC SC Last administered on 03/20/17 17 :02; Start 03/19/17 at 17:30; Stop 03/21/17 at 07:34; Status DC Insulin Human Lispro (HumaLOG INSULIN) QHS SC ; Start 03/19/17 at 21:00; Stop 03/21/17 at 07:34; Status DC Insulin Human Lispro (HumaLOG INSULIN) SEE PROTOCOL TABLE AC SC Last administered on 03/25/17 08:11; Start 03/21/17 at 07:30; Stop 04/20/17 at 07:29 Insulin Human Lispro (HumaLOG INSULIN) SEE PROTOCOL TABLE QHS SC ; Start at 21:00; Stop 04/20/17 at 20:59 Lisinopril (Prinivil) 5 mg DAILY PO Last administered on 03/25/17 08:11; Start 03/21/17 at 09:00; Stop 04/20/17 at 08:59 Magnesium Hydroxide (Milk Of Magnesia) 30 ml DAILYPRN PRN PO CONSTIPATION; Start 03/19/17 at 15:30; Stop 04/18/17 at 15:29 Nicotine (Nicoderm Cq 21mg) 1 patch DAILY TD Last administered on 03/25/17 08: 12; Start 03/20/17 at 09:00; Stop 04/19/17 at 08:59 Senna (Senokot) 1 tab QHS PO ; Start 03/19/17 at 21:00; Stop 04/18/17 at 20:59 Sodium Biphosphate/ Sodium Phosphate (Fleet Enema) 1 ea DAILYPRN PRN [place] CONSTIPATION; Start 03/19/17 at 15:30; Stop 04/18/17 at 15:29 CLARENCE NEFF MD March 25, 2017 11:17
[2017-03-25 14:00] VITALS: BP 136/71
[2017-03-25 20:00] VITALS: BP 168/88
[2017-03-25] MEDS: ATORVASTATIN 20 MG TAB PO SCH (20:48)
[2017-03-25] MEDS: SENNA 8.6 MG TAB (SENOKOT) PO SCH (20:52)
[2017-03-25 22:12] VITALS: BP 154/74
[2017-03-25] MEDS: NORCO, ANEXSIA 5/325MG TABLET (HYDROcodone/ACETAMINOPHEN) PO PRN (22:32)
[2017-03-26 06:00] VITALS: BP 162/82
[2017-03-26] MEDS: LISINOPRIL 5 MG TAB PO SCH (08:14)
[2017-03-26] MEDS: ASPIRIN 81 MG ENTERIC TAB PO SCH (08:14)
[2017-03-26] MEDS: CLOPIDOGREL 75 MG TAB PO SCH (08:14)
[2017-03-26] MEDS: CARVedilol 12.5 MG TAB PO SCH ×2 (08:14→21:34)
[2017-03-26] MEDS: NICOTINE 21MG/24HR 1 EA TRANSDERMAL TD SCH (08:15)
[2017-03-26] MEDS: ENOXAPARIN 30 MG/0.3 ML SYR (J1650) SC SCH ×2 (08:15→21:33)
[2017-03-26] MEDS: HumaLOG INSULIN (NovoLOG) PER UNIT SC SCH ×4 (08:15→21:00)
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
[2017-03-26 14:30] VITALS: BP 198/95
[2017-03-26 15:30] VITALS: BP 208/87
--- NOTE | 2017-03-26 15:34 | IPNPDOC ---
Subjective Date Seen The patient was seen on 03/26/17. Subjective Chief Complaint/HPI The patient is a 56-year-old male admitted with a reason for visit of Stroke- Right Raymond/Right Hemiparesis. Events since last encounter Pt with no complaints today. ENT: Denies: Head Aches, Dysphagia Skin: Denies: Rash, Lesions, Breakdown Pulmonary: Denies: Dyspnea, Cough Cardiovascular: Denies: Chest Pain, Palpitations, Orthopnea, Paroxysmal Noc. Dyspnea, Lt Headedness Gastrointestinal: Denies: Nausea, Vomiting, Abdominal Pain, Diarrhea, Constipation Objective Physical Examination General Exam: Positive: Alert Eye Exam: Positive: PERRLA ENT Exam: Positive: Atraumatic Neck Exam: Positive: Supple Chest Exam: Positive: Clear to auscultation, Normal air movement Heart Exam: Positive: Rate Normal, Regular Rhythm, Normal S1, Normal S2, Negative: Murmurs, Rubs Abdomen Exam: Positive: Normal bowel sounds, Soft, Negative: Tenderness, Hepatospenomegaly Skin Exam: Positive: Nl turgor and temperature Assessment /Plan Problems (1) Stroke Problem Text: * ARU as per Dr Saunders * PT/OT * ASA 81/Plavix/statin * Outpt f/u with Neuro. (2) HTN (hypertension) Problem Text: * BP trend 150-160 systolic. * Coreg * lisinopril- will increase to 10mg HS related to elevated BP. * Hydralazine with hold paramters (3) Diabetes Problem Text: * diet * SSI * 115-170. * Pt is declining Metformin at this time. Plan/VTE VTE Prophylaxis Ordered?: Yes (Lovenox) Disposition as per ARU VS, I&O, 24H, [facility] Vital Signs/I&O Vital Signs Date Time Temp Pulse Resp B/P (MAP) Pulse Ox O2 Delivery O2 Flow Rate FiO2 03/26/17 08:14 162/82 03/26/17 08:14 74 03/26/17 06:00 97.9 18 96 Room Air I&O- Last 24 Hours up to 6 AM 03/26/17 05:59 Intake Total 1320 ml Output Total 1975 ml Balance -655 ml Laboratory Data 24H LABS Laboratory Tests 2 03/25/17 17:29: Bedside Glucose (Misc Panel) 151H 03/25/17 20:54: Bedside Glucose (Misc Panel) 162H 03/26/17 06:54: Bedside Glucose (Misc Panel) 170H 03/26/17 11:22: Bedside Glucose (Misc Panel) 115H Jaqueline Maddox March 26, 2017 15:34
[2017-03-26] MEDS: NORCO, ANEXSIA 5/325MG TABLET (HYDROcodone/ACETAMINOPHEN) PO PRN (15:36)
[2017-03-26 16:20] VITALS: BP 143/79
--- NOTE | 2017-03-26 16:36 | IPNPDOC ---
Coordinating Producer Progress Note DATE OF SERVICE: 03/26/17 DATE OF SERVICE: 03/26/17 DATE OF ADMISSION: March 19, 2017 at 16:25 INPATIENT REHABILITATION ADMISSION DAY: #7 SUBJECTIVE: Patient is a 56-year-old white male with a pontine CVA. Patient reports feeling good having no pain or other complaints. He notes some improvement in sensation on his left upper and lower extremity as a pins and needles sensations have continue to decrease. ALLERGIES: See Below MEDICATIONS: Reviewed, see below. OBJECTIVE: VITAL SIGNS: Please see below. PHYSICAL EXAMINATION: GENERAL: Well-nourished well-developed middle-aged white male who is alert and oriented 4. Speech is clear coherent and appropriate. Affect is pleasant and cooperative the patient in good mood patient is in minimal to no acute distress. HEENT: Normocephalic/atraumatic. CARDIOVASCULAR: Regular rate and rhythm with normal S1-S2 in 2 out of 4 radial pulses. LUNGS: All alex clear to auscultation without rales, rhonchi, or wheezing. ABDOMEN: Benign with normal bowel sounds. NEUROLOGICAL: As above with some continued mild weakness in the left upper and lower extremity and decreased coordination of 2 handed activities. SKIN: Contusions of left knee continued to improve further. LABORATORY DATA: Reviewed. Please see below. MICROBIOLOGY: Please see below. IMAGING: No new imaging. DVT prophylaxis ordered?: Patient continues on Plavix and Lovenox with CAREY hose. Patient also ambulating frequently for moderate distances. ASSESSMENT AND PLAN: 1. Rehabilitation of right pontine CVA: Patient working hard in therapies and continue progress with PT and OT. Patient progressing and on track for discharge to home on April 01 with family. He is still having problems with left awareness, but now having knee pain returning to his arthritic knee as sensorium recovers. I will try Zostrix for this and avoid opiates that will decrease cognition needed for therapy. 2. Anemia: I will get new CBC tomorrow to see if anemia and thrombocytopenia is changing. 3. Type 2 diabetes mellitus: Control remains good. I will discussed recommended home management with Medicine Service, but I will write for home Glucometer and testing supplies. Pt. to transition to oral hypoglycemic/Insulin resistance reducing treatment. 4. Hypertension: During her last 36 hours the patient has tended to run systolic blood pressures in the 160s. He may need some adjustment by Medicine Service. TIME SPENT: Chart Review, examination and documentation greater than 35 minutes. Allergies Coded Allergies: No Known Drug Allergy (Verified Allergy, Unknown, 03/15/17) Vital Signs Vital Signs Date Time Temp Pulse Resp B/P (MAP) Pulse Ox O2 Delivery O2 Flow Rate FiO2 03/26/17 16:20 143/79 (100) 03/26/17 16:10 18 03/26/17 14:30 98.1 82 97 Room Air Laboratory Data Labs 24H Laboratory Tests 2 03/25/17 17:29: Bedside Glucose (Misc Panel) 151H 03/25/17 20:54: Bedside Glucose (Misc Panel) 162H 03/26/17 06:54: Bedside Glucose (Misc Panel) 170H 03/26/17 11:22: Bedside Glucose (Misc Panel) 115H Current Medications Current Medications Current Medications Acetaminophen/ Hydrocodone Bitart ([place], Anexsia 5/325) 1 tab Q6HP PRN PO MILD /MODERATE PAIN (PS 1-7) Last administered on 03/26/17 15:36; Start 03/25/17 at 22:30; Stop 04/01/17 at 22:29 Aspirin (Ecotrin) 81 mg QAM PO Last administered on 03/26/17 08:14; Start 10/25 at 09:00; Stop 04/19/17 at 08:59 Atorvastatin Calcium (Lipitor) 40 mg QHS PO Last administered on 03/25/17 20: 48; Start 03/19/17 at 21:00; Stop 04/18/17 at 20:59 Carvedilol (COReg) 25 mg BID PO Last administered on 03/26/17 08:14; Start 09/25 at 21:00; Stop 04/18/17 at 20:59 Clopidogrel Bisulfate (PLAVix) 75 mg DAILY PO Last administered on 03/26/17 08 :14; Start 03/20/17 at 09:00; Stop 04/19/17 at 08:59 Dextrose (Dextrose 50%) 25 ml ASDIRECTED PRN IV SEE LABEL COMMENTS; Start 03/19 at 16:45; Stop 04/18/17 at 16:44 Enoxaparin Sodium (Lovenox) 30 mg BID SC Last administered on 03/26/17 08:15; Start 03/19/17 at 21:00; Stop 03/28/17 at 20:59 Glucagon (Glucagon) 1 mg ASDIRECTED PRN SC SEE LABEL COMMENTS; Start 03/19/17 at 16:45; Stop 04/18/17 at 16:44 Glucose (Glucose) 16 GM ASDIRECTED PRN PO SEE LABEL COMMENTS; Start 03/19/17 at 16:45; Stop 04/18/17 at 16:44 Hydralazine HCl (Apresoline) 5 mg Q8H PRN IV HYPERTENSION; Start 03/19/17 at 17 :30; Stop 04/18/17 at 17:29; Status UNV Hydralazine HCl (Apresoline) 10 mg Q8HP PRN PO HTN; Start 03/19/17 at 17:45; Stop 04/18/17 at 17:44 Insulin Human Lispro (HumaLOG INSULIN) AC SC Last administered on 03/20/17 17 :02; Start 03/19/17 at 17:30; Stop 03/21/17 at 07:34; Status DC Insulin Human Lispro (HumaLOG INSULIN) QHS SC ; Start 03/19/17 at 21:00; Stop 03/21/17 at 07:34; Status DC Insulin Human Lispro (HumaLOG INSULIN) SEE PROTOCOL TABLE AC SC Last administered on 03/26/17 12:26; Start 03/21/17 at 07:30; Stop 04/20/17 at 07:29 Insulin Human Lispro (HumaLOG INSULIN) SEE PROTOCOL TABLE QHS SC ; Start at 21:00; Stop 04/20/17 at 20:59 Lisinopril (Prinivil) 5 mg DAILY PO Last administered on 03/26/17 08:14; Start 03/21/17 at 09:00; Stop 04/20/17 at 08:59 Magnesium Hydroxide (Milk Of Magnesia) 30 ml DAILYPRN PRN PO CONSTIPATION; Start 03/19/17 at 15:30; Stop 04/18/17 at 15:29 Nicotine (Nicoderm Cq 21mg) 1 patch DAILY TD Last administered on 03/26/17 08: 15; Start 03/20/17 at 09:00; Stop 04/19/17 at 08:59 Senna (Senokot) 1 tab QHS PO ; Start 5/11/17 at 21:00; Stop 04/18/17 at 20:59 Sodium Biphosphate/ Sodium Phosphate (Fleet Enema) 1 ea DAILYPRN PRN [place] CONSTIPATION; Start 03/19/17 at 15:30; Stop 04/18/17 at 15:29 CLARENCE NEFF MD March 26, 2017 16:36
[2017-03-26 20:00] VITALS: BP 146/82
[2017-03-26] MEDS: SENNA 8.6 MG TAB (SENOKOT) PO SCH (21:00)
[2017-03-26] MEDS: ATORVASTATIN 20 MG TAB PO SCH (21:34)
[2017-03-26] MEDS: CAPSAICIN 0.025% CR 60 GM TOP SCH (21:34)
[2017-03-27 06:00] VITALS: BP 158/80
[2017-03-27] MEDS: NICOTINE 21MG/24HR 1 EA TRANSDERMAL TD SCH (08:53)
[2017-03-27] MEDS: ASPIRIN 81 MG ENTERIC TAB PO SCH (08:55)
[2017-03-27] MEDS: ENOXAPARIN 30 MG/0.3 ML SYR (J1650) SC SCH ×2 (08:55→20:49)
[2017-03-27] MEDS: HumaLOG INSULIN (NovoLOG) PER UNIT SC SCH ×4 (08:55→21:09)
[2017-03-27] MEDS: LISINOPRIL 5 MG TAB PO SCH (08:57)
[2017-03-27] MEDS: CARVedilol 12.5 MG TAB PO SCH ×2 (08:58→20:48)
[2017-03-27] MEDS: CLOPIDOGREL 75 MG TAB PO SCH (08:59)
[2017-03-27] MEDS: CAPSAICIN 0.025% CR 60 GM TOP SCH ×4 (09:00→20:49)
--- NOTE | 2017-03-27 10:07 | IPNPDOC ---
Manager Research Progress Note DATE OF SERVICE: 03/27/17 DATE OF ADMISSION: March 19, 2017 at 16:25 INPATIENT REHABILITATION ADMISSION DAY: #8 SUBJECTIVE: Patient is a 56-year-old white male with a pontine CVA. Patient reports feeling good having no pain except left knee or other complaints. He notes some improvement in sensation on his left upper and lower extremity as a pins and needles sensations have continue to decrease. ALLERGIES: See Below MEDICATIONS: Reviewed, see below. OBJECTIVE: VITAL SIGNS: Please see below. PHYSICAL EXAMINATION: GENERAL: Well-nourished well-developed middle-aged white male who is alert and oriented 4. Speech is clear coherent and appropriate. Affect is pleasant and cooperative the patient in good mood patient is in minimal to no acute distress. HEENT: Normocephalic/atraumatic. CARDIOVASCULAR: Regular rate and rhythm with normal S1-S2 without S3. S4, murmurs or rubs and 2 out of 4 radial pulses. LUNGS: All alex clear to auscultation without rales, rhonchi, or wheezing. ABDOMEN: Benign with normal bowel sounds. NEUROLOGICAL: As above with some continued mild weakness in the left upper and lower extremity and decreased coordination of 2 handed activities. SKIN: Contusions of left knee continued to improve further. LABORATORY DATA: Reviewed. Please see below. MICROBIOLOGY: Please see below. IMAGING: No new imaging. DVT prophylaxis ordered?: Patient continues on Plavix and Lovenox with CAREY hose. Patient also ambulating frequently for moderate distances. ASSESSMENT AND PLAN: 1. Rehabilitation of right pontine CVA: Patient working hard in therapies and continue progress with PT and OT. Patient progressing and on track for discharge to home on April 01 with family. He is still having problems with left awareness. I will continue Zostrix for this and avoid opiates that will decrease cognition needed for therapy. 2. Anemia: I will recheck it on Thursday. 3. Type 2 diabetes mellitus: Control remains good. I will discussed recommended home management with Medicine Service, but I will write for home Glucometer and testing supplies. Pt. to transition to oral hypoglycemic/Insulin resistance reducing treatment. 4. Hypertension: During her last 36 hours the patient has tended to run systolic blood pressures in the 150's and 160s. Medicine Service aware. TIME SPENT: Chart Review, examination and documentation greater than 25 minutes. Allergies Coded Allergies: No Known Drug Allergy (Verified Allergy, Unknown, 03/15/17) Vital Signs Vital Signs Date Time Temp Pulse Resp B/P (MAP) Pulse Ox O2 Delivery O2 Flow Rate FiO2 03/27/17 08:58 86 03/27/17 08:57 154/86 03/27/17 06:00 98.8 18 98 Room Air Laboratory Data Labs 24H Laboratory Tests 2 03/26/17 11:22: Bedside Glucose (Misc Panel) 115H 03/26/17 16:49: Bedside Glucose (Misc Panel) 131H 03/26/17 20:39: Bedside Glucose (Misc Panel) 170H 03/27/17 06:17: Bedside Glucose (Misc Panel) 219H Current Medications Current Medications Current Medications Acetaminophen/ Hydrocodone Bitart ([place], Anexsia 5/325) 1 tab Q6HP PRN PO MILD /MODERATE PAIN (PS 1-7) Last administered on 03/26/17 15:36; Start 03/25/17 at 22:30; Stop 03/26/17 at 16:47; Status DC Aspirin (Ecotrin) 81 mg QAM PO Last administered on 03/27/17 08:55; Start 10/25 at 09:00; Stop 04/19/17 at 08:59 Atorvastatin Calcium (Lipitor) 40 mg QHS PO Last administered on 03/26/17 21: 34; Start 03/19/17 at 21:00; Stop 04/18/17 at 20:59 Capsaicin (Zostrix 0.025%) to anterior left k... TID TOP Last administered on 09:00; Start 03/26/17 at 21:00; Stop 03/30/17 at 06:00 Carvedilol (COReg) 25 mg BID PO Last administered on 03/27/17 08:58; Start 09/25 at 21:00; Stop 04/18/17 at 20:59 Clopidogrel Bisulfate (PLAVix) 75 mg DAILY PO Last administered on 03/27/17 08 :59; Start 03/20/17 at 09:00; Stop 04/19/17 at 08:59 Dextrose (Dextrose 50%) 25 ml ASDIRECTED PRN IV SEE LABEL COMMENTS; Start 03/19 at 16:45; Stop 04/18/17 at 16:44 Enoxaparin Sodium (Lovenox) 30 mg BID SC Last administered on 03/27/17 08:55; Start 03/19/17 at 21:00; Stop 03/28/17 at 20:59 Glucagon (Glucagon) 1 mg ASDIRECTED PRN SC SEE LABEL COMMENTS; Start 03/19/17 at 16:45; Stop 04/18/17 at 16:44 Glucose (Glucose) 16 GM ASDIRECTED PRN PO SEE LABEL COMMENTS; Start 03/19/17 at 16:45; Stop 04/18/17 at 16:44 Hydralazine HCl (Apresoline) 5 mg Q8H PRN IV HYPERTENSION; Start 03/19/17 at 17 :30; Stop 04/18/17 at 17:29; Status UNV Hydralazine HCl (Apresoline) 10 mg Q8HP PRN PO HTN; Start 03/19/17 at 17:45; Stop 04/18/17 at 17:44 Insulin Human Lispro (HumaLOG INSULIN) AC SC Last administered on 03/20/17 17 :02; Start 03/19/17 at 17:30; Stop 03/21/17 at 07:34; Status DC Insulin Human Lispro (HumaLOG INSULIN) QHS SC ; Start 03/19/17 at 21:00; Stop 03/21/17 at 07:34; Status DC Insulin Human Lispro (HumaLOG INSULIN) SEE PROTOCOL TABLE AC SC Last administered on 03/27/17 08:55; Start 03/21/17 at 07:30; Stop 04/20/17 at 07:29 Insulin Human Lispro (HumaLOG INSULIN) SEE PROTOCOL TABLE QHS SC ; Start at 21:00; Stop 04/20/17 at 20:59 Lisinopril (Prinivil) 5 mg DAILY PO Last administered on 03/27/17 08:57; Start 03/21/17 at 09:00; Stop 04/20/17 at 08:59 Magnesium Hydroxide (Milk Of Magnesia) 30 ml DAILYPRN PRN PO CONSTIPATION; Start 03/19/17 at 15:30; Stop 04/18/17 at 15:29 Nicotine (Nicoderm Cq 21mg) 1 patch DAILY TD Last administered on 03/27/17 08: 53; Start 5/12/17 at 09:00; Stop 04/19/17 at 08:59 Senna (Senokot) 1 tab QHS PO ; Start 03/19/17 at 21:00; Stop 04/18/17 at 20:59 Sodium Biphosphate/ Sodium Phosphate (Fleet Enema) 1 ea DAILYPRN PRN [place] CONSTIPATION; Start 03/19/17 at 15:30; Stop 04/18/17 at 15:29 CLARENCE NEFF MD March 27, 2017 10:07
--- NOTE | 2017-03-27 10:41 | IPNPDOC ---
Subjective Date Seen The patient was seen on 03/27/17. Subjective Chief Complaint/HPI The patient is a 56-year-old male admitted with a reason for visit of Stroke- Right Raymond/Right Hemiparesis. Events since last encounter No new complaints. States he has had Left knee pain- which is chronic for him. Objective Physical Examination General Exam: Positive: Alert Eye Exam: Positive: PERRLA ENT Exam: Positive: Atraumatic Neck Exam: Positive: Supple Chest Exam: Positive: Clear to auscultation, Normal air movement Heart Exam: Positive: Rate Normal, Regular Rhythm, Normal S1, Normal S2, Negative: Murmurs, Rubs Abdomen Exam: Positive: Normal bowel sounds, Soft, Negative: Tenderness, Hepatospenomegaly Skin Exam: Positive: Nl turgor and temperature Assessment /Plan Problems (1) Stroke Problem Text: * ARU as per Dr Saunders * PT/OT * ASA 81/Plavix/statin * Outpt f/u with Neuro. (2) HTN (hypertension) Problem Text: * BP trend 140s-150s systolic. * Cont Coreg * lisinopril- 03/26 increased to 10mg HS related to elevated BP. * Hydralazine with hold paramters (3) Diabetes Problem Text: * diet * SSI * 115-219. * Pt is declining Metformin at this time. * Discussed with Pt today, he states he does not wish to be tried on po meds at this time while he is here. He wants to f/u with PCP after d/c home and discuss further. * Pt agreeable to continuing with SSI. * Oupt f/u with PCP. Plan/VTE VTE Prophylaxis Ordered?: Yes (Lovenox) VS, I&O, 24H, Fishbone Vital Signs/I&O Vital Signs Date Time Temp Pulse Resp B/P (MAP) Pulse Ox O2 Delivery O2 Flow Rate FiO2 03/27/17 08:58 86 03/27/17 08:57 154/86 03/27/17 06:00 98.8 18 98 Room Air I&O- Last 24 Hours up to 6 AM 03/27/17 06:00 Intake Total 1080 ml Output Total 325 ml Balance 755 ml Laboratory Data 24H LABS Laboratory Tests 2 03/26/17 11:22: Bedside Glucose (Misc Panel) 115H 03/26/17 16:49: Bedside Glucose (Misc Panel) 131H 03/26/17 20:39: Bedside Glucose (Misc Panel) 170H 03/27/17 06:17: Bedside Glucose (Misc Panel) 219H Jaqueline Maddox March 27, 2017 10:41
[2017-03-27] MEDS ORDERED: traZODone 100 MG TAB PO PRN (15:00)
[2017-03-27 15:02] VITALS: BP 162/80
[2017-03-27] MEDS: NICOTINE 14 MG/24 HR TRANSDERMAL TD SCH (16:36)
[2017-03-27 20:00] VITALS: BP 132/75
[2017-03-27] MEDS: ATORVASTATIN 20 MG TAB PO SCH (20:48)
[2017-03-27] MEDS: SENNA 8.6 MG TAB (SENOKOT) PO SCH (20:49)
[2017-03-28 06:00] VITALS: BP 152/78
[2017-03-28 06:49] LABS: MEAN CORPUSCULAR HEMOGLOBIN 30.7 pg (27.0-33.0); MEAN CORPUSCULAR HGB CONC 34.2 g/dl (32.0-36.5); MEAN CORPUSCULAR VOLUME 89.8 fl (80.0-96.0); RED CELL DISTRIBUTION WIDTH 13.7 % (11.5-14.5); WHITE BLOOD COUNT 7.8 K/mm3 (4.0-10.0)
[2017-03-28] MEDS: ASPIRIN 81 MG ENTERIC TAB PO SCH (09:11)
[2017-03-28] MEDS: CLOPIDOGREL 75 MG TAB PO SCH (09:11)
[2017-03-28] MEDS: CARVedilol 12.5 MG TAB PO SCH ×2 (09:11→20:35)
[2017-03-28] MEDS: NICOTINE 14 MG/24 HR TRANSDERMAL TD SCH (09:11)
[2017-03-28] MEDS: HumaLOG INSULIN (NovoLOG) PER UNIT SC SCH ×4 (09:12→21:00)
[2017-03-28] MEDS: ENOXAPARIN 30 MG/0.3 ML SYR (J1650) SC SCH ×2 (09:12→20:36)
[2017-03-28] MEDS: LISINOPRIL 5 MG TAB PO SCH (09:12)
[2017-03-28] MEDS: CAPSAICIN 0.025% CR 60 GM TOP SCH ×4 (09:13→20:36)
[2017-03-28 14:21] VITALS: BP 148/77
[2017-03-28 19:43] VITALS: BP 162/76
[2017-03-28] MEDS: ATORVASTATIN 20 MG TAB PO SCH (20:35)
[2017-03-28] MEDS: SENNA 8.6 MG TAB (SENOKOT) PO SCH (20:36)
[2017-03-29 06:41] VITALS: BP 165/86
[2017-03-29] MEDS: HumaLOG INSULIN (NovoLOG) PER UNIT SC SCH ×4 (07:55→21:00)
[2017-03-29] MEDS: CAPSAICIN 0.025% CR 60 GM TOP SCH ×4 (10:14→21:00)
[2017-03-29] MEDS: CLOPIDOGREL 75 MG TAB PO SCH (10:14)
[2017-03-29] MEDS: ASPIRIN 81 MG ENTERIC TAB PO SCH (10:14)
[2017-03-29] MEDS: LISINOPRIL 5 MG TAB PO SCH (10:15)
[2017-03-29] MEDS: ENOXAPARIN 30 MG/0.3 ML SYR (J1650) SC SCH ×2 (10:15→21:45)
[2017-03-29] MEDS: NICOTINE 14 MG/24 HR TRANSDERMAL TD SCH (10:16)
[2017-03-29] MEDS: CARVedilol 12.5 MG TAB PO SCH ×2 (10:16→21:44)
[2017-03-29 14:00] VITALS: BP 158/86
[2017-03-29 20:00] VITALS: BP 164/82
[2017-03-29] MEDS: SENNA 8.6 MG TAB (SENOKOT) PO SCH (21:00)
[2017-03-29] MEDS: ATORVASTATIN 20 MG TAB PO SCH (21:45)
[2017-03-30 06:00] VITALS: BP 170/80
[2017-03-30 06:48] LABS: MEAN CORPUSCULAR HEMOGLOBIN 31.3 pg (27.0-33.0); MEAN CORPUSCULAR HGB CONC 34.8 g/dl (32.0-36.5); RED CELL DISTRIBUTION WIDTH 13.9 % (11.5-14.5); WHITE BLOOD COUNT 7.3 K/mm3 (4.0-10.0)
[2017-03-30] MEDS: HumaLOG INSULIN (NovoLOG) PER UNIT SC SCH ×4 (07:36→20:16)
[2017-03-30] MEDS: NICOTINE 14 MG/24 HR TRANSDERMAL TD SCH (09:57)
[2017-03-30] MEDS: ENOXAPARIN 30 MG/0.3 ML SYR (J1650) SC SCH (09:58)
[2017-03-30] MEDS: ASPIRIN 81 MG ENTERIC TAB PO SCH (09:58)
[2017-03-30] MEDS: CARVedilol 12.5 MG TAB PO SCH ×2 (10:00→20:16)
[2017-03-30] MEDS: CLOPIDOGREL 75 MG TAB PO SCH (10:01)
[2017-03-30] MEDS: LISINOPRIL 5 MG TAB PO SCH (10:02)
[2017-03-30] MEDS: CAPSAICIN 0.025% CR 60 GM TOP SCH ×4 (10:03→20:17)
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
[2017-03-30 14:00] VITALS: BP 160/86
[2017-03-30 20:13] VITALS: BP 158/84
[2017-03-30] MEDS: SENNA 8.6 MG TAB (SENOKOT) PO SCH (20:16)
[2017-03-30] MEDS: ATORVASTATIN 20 MG TAB PO SCH (20:16)
[2017-03-31 06:00] VITALS: BP 139/83
[2017-03-31 07:26] LABS: MEAN CORPUSCULAR HGB CONC 33.4 g/dl (32.0-36.5); MEAN CORPUSCULAR VOLUME 89.9 fl (80.0-96.0); RED CELL DISTRIBUTION WIDTH 13.9 % (11.5-14.5); WHITE BLOOD COUNT 7.5 K/mm3 (4.0-10.0)
[2017-03-31 08:19] VITALS: BP 139/83
[2017-03-31] MEDS: CARVedilol 12.5 MG TAB PO SCH (08:19)
[2017-03-31] MEDS: CLOPIDOGREL 75 MG TAB PO SCH (08:20)
[2017-03-31] MEDS: ASPIRIN 81 MG ENTERIC TAB PO SCH (08:20)
[2017-03-31] MEDS: HumaLOG INSULIN (NovoLOG) PER UNIT SC SCH ×2 (08:20→12:22)
[2017-03-31] MEDS: LISINOPRIL 5 MG TAB PO SCH (08:20)
[2017-03-31] MEDS ORDERED: TRAZ10TA PO (09:10)
[2017-03-31] MEDS ORDERED: CLOP75TA2 PO (09:10)
[2017-03-31] MEDS ORDERED: LISI-542 PO (09:10)
[2017-03-31] MEDS ORDERED: CARV12.5 PO (09:10)
[2017-03-31] MEDS ORDERED: ATOR1TAB21 PO (09:10)
[2017-03-31] MEDS ORDERED: METF500T PO (09:20)
--- NOTE | 2017-03-31 22:17 | PMRDS ---
DATE OF ADMISSION: 03/19/2017 DATE OF DISCHARGE: 03/31/2017 DISCHARGE DIAGNOSIS: Rehabilitation of right pontine CVA with left hemiparesis, left decreased sensorium, and incoordination and balance deficits. SECONDARY DISCHARGE DIAGNOSES: 1. Type 2 diabetes mellitus, new onset. 2. Atherosclerotic cardiovascular disease including hypertension and hyperlipidemia. 3. Tobacco dependence. Admitted on 03/15/2017 to [facility] for new onset left-sided weakness. Patient found to have sustained a right pontine CVA. He was further evaluated and started in physical and occupational therapy and was noted to also have newly discovered type 2 diabetes mellitus. He was medically stabilized and on 03/19/2017, patient was admitted to the acute rehabilitation service for a course of neurorehabilitation. PROCEDURES PERFORMED ON THIS UNIT: None. DIAGNOSTIC AND LABORATORY DATA: Showed very mild anemia with hemoglobin ranging from 12.9 up to 13.8 and low platelet count starting at 91 and increasing to 138 by the time of discharge, also very mild hypoalbuminemia of 3.1. HOSPITAL COURSE: Patient was admitted on 03/19/2017, to the acute rehabilitation unit and was started on a program of physical and occupational therapy. The patient participated well in these therapies and made significant gains, though he showed a little bit of impulsivity early on and this caused a loss of balance with a very mild abrasion of the left garcia around the tibial tuberosity and a very small, about 1 cm in diameter, contusion. Also the next day he bumped the left knee against the table and sustained a very small contusion at that time. Otherwise, patient has been making steady progress. He has progressed to reaching his discharge goals to return to home with his using large base quad cane for mobility. DISCHARGE MEDICATIONS: - atorvastatin 40 mg nightly - Coreg 25 mg twice a day for hypertension - Plavix 75 mg daily for clot prevention and CVA prevention - lisinopril 5 mg daily for hypertension control - metformin 500 mg twice a day for type 2 diabetes management - trazodone 100 mg nightly as needed for insomnia - aspirin 81 mg daily for clot prevention and deep venous thrombosis (DVT) prevention - Benadryl 50 mg every 4 hours as needed for allergies The patient has also been given a prescription if he will continue to not smoke to use Nicoderm 7 mg per 24 hour patch daily for the next 7 days and then discontinue use. He is on a consistent carbohydrate diet. COMPLICATIONS: Only the very mild abrasion. DISCHARGE PLAN AND INSTRUCTIONS: Patient is to see his primary care within 2 weeks at the [facility] and to see Dr. Hatch for neurology followup in the next 2 weeks. Time spent on discharge is greater than 35 minutes. EZEKIEL
== END 2017-03-31 12:35 | disposition home or self-care (01) | DRG 58 ==
LOC: M PM&R 16:25
PROVIDERS: ADMIT Physical Medicine & Rehabilitation; ATTEND Physical Medicine & Rehabilitation
DX: I69.354 Hemiplegia and hemiparesis following cerebral infarction affecting left non-dominant side (principal); I10 Essential (primary) hypertension; E11.9 Type 2 diabetes mellitus without complications; E78.5 Hyperlipidemia, unspecified; D64.9 Anemia, unspecified; Z79.82 Long term (current) use of aspirin; F17.210 Nicotine dependence, cigarettes, uncomplicated; Z79.02 Long term (current) use of antithrombotics/antiplatelets; Z79.4 Long term (current) use of insulin; Z79.899 Other long term (current) drug therapy; I25.10 Atherosclerotic heart disease of native coronary artery without angina pectoris; M19.90 Unspecified osteoarthritis, unspecified site

== ENCOUNTER → 2017-07-29 | Outpatient (REF) ==
[~2017-07-29] MED LIST changes: +LISI-542 PO; +METF500T13 PO; +TRAZ10TA PO
--- NOTE | 2017-07-29 15:57 | REP ---
Left knee series: Five views. History: Degenerative disease. Findings: On the AP radiograph there is minimal medial osteophytic lipping at the tibial plateau. Bones, joints, and soft tissues are otherwise unremarkable. A normal fabella is seen posterolaterally. Impression: Minimal osteoarthritic lipping medial tibial plateau. Otherwise normal. Signed by Alf Booth MD 07/29/2017 06:38 P
== END ==
LOC: M SMT 13:30
PROVIDERS: ATTEND Internal Medicine
DX: Z02.9 Encounter for administrative examinations, unspecified (principal)

== ENCOUNTER 2017-10-09 08:28 | Day surgery (SDC) | payer OTHER ==
[~2017-10-09] VITALS: Ht 188 cm; Wt 120.2 kg
[~2017-10-09 08:28] MED LIST changes: +HYDR-3713 PO; +LISI20TA PO
[2017-10-09] MEDS ORDERED: MIDAZOLAM INJ 2 MG/2 ML VIAL (J2250) As Ordered ONE (11:56)
[2017-10-09] MEDS ORDERED: fentaNYL 100 MCG/2 ML INJECTION (J3010) As Ordered ONE ×2 (11:56→13:15)
[2017-10-09] MEDS ORDERED: ONDANSETRON 4MG/2ML VIAL (J2405) As Ordered ONE (11:59)
[2017-10-09] MEDS ORDERED: METOCLOPRAMIDE INJ 10MG/2ML VIAL (J2765) As Ordered ONE (11:59)
[2017-10-09] MEDS ORDERED: ROCURONIUM BROMIDE 50 MG/5 ML VIAL As Ordered ONE ×2 (11:59→12:26)
[2017-10-09] MEDS ORDERED: PROPOFOL 200 MG/20 ML VIAL As Ordered ONE (11:59)
[2017-10-09] MEDS ORDERED: LIDOCAINE 2% INJ 100 MG/5 ML SDV (FOR ANES.) As Ordered ONE (12:00)
[2017-10-09] MEDS ORDERED: GLYCOPYRROLATE INJ 0.2 MG/ML 2 ML VIAL As Ordered ONE (12:00)
[2017-10-09] MEDS ORDERED: NEOSTIGMINE 10 MG/10 ML VIAL (J2710) As Ordered ONE (12:00)
[2017-10-09] MEDS ORDERED: LIDOCAINE 2% W/ EPINEPHRINE 1.7 ML DENTAL INJ As Ordered ONE (12:02)
[2017-10-09] MEDS ORDERED: LABETALOL HCL 100 MG/20 ML VIAL As Ordered ONE (12:02)
[2017-10-09] MEDS ORDERED: DESFLURANE 240 ML INHALANT As Ordered ONE (12:43)
[2017-10-09] MEDS ORDERED: PERCOCET 5MG/325MG TAB As Ordered ONE (13:14)
[2017-10-09] MEDS: fentaNYL 100 MCG/2 ML INJECTION (J3010) IV PRN ×2 (13:20→13:25)
[2017-10-09] MEDS ORDERED: LR 1,000 ML IV SCH ×2 (13:30→14:30)
[2017-10-09] MEDS ORDERED: HYDROmorphone HCL 1 MG/ML SYRINGE (J1170) IV PRN (13:30)
[2017-10-09] MEDS ORDERED: ONDANSETRON 4MG/2ML VIAL (J2405) IV PRN (13:30)
[2017-10-09] MEDS ORDERED: PERCOCET 5MG/325MG TAB PO PRN (13:30)
[2017-10-09 14:35] VITALS: BP 186/92
--- NOTE | 2017-10-10 08:43 | RO ---
DATE OF PROCEDURE: 10/09/2017 PREPROCEDURE DIAGNOSIS: Caries and periodontal disease, teeth numbers 2 through 15 and tooth number 19. POSTPROCEDURE DIAGNOSIS: Caries and periodontal disease, teeth numbers 2 through 15 and tooth number 19. PROCEDURE: 1. Surgical removal of teeth as listed 2, 3, 4, 5, 6, 7, 8, 9, 10, 11, 12, 13, 14, 15 and 19. 2. Bilateral maxillary alveoplasty. SURGEON: Dr. Ace Obregon MEMORIAL COUNSELOR: ANESTHESIA: General nasal endotracheal. INDICATIONS: The patient is a 57-year-old male who presents for referral from his general dentist for removal of all of his remaining upper teeth in addition to one lower tooth in preparation for full upper denture. Due to patient's medical history, including hypertension, CVA in the past in 2006, diabetes and arthritis, on multiple medications, and the extent of the procedure, felt necessary to be performed in the operating room under general anesthesia. DESCRIPTION OF PROCEDURE: The patient was brought to the operating room (OR) per anesthesia, placed supine upon the OR table wherein general nasal endotracheal anesthetic was undertaken without difficulty. After the usual sterile prep and drape for an intraoral procedure was performed, a throat pack was placed. 2% Xylocaine with 1:100,000 epinephrine was injected by way of infiltration fashion along the surgical sites, approximately 6 mL. Attention first turned to tooth number 19. A #15 scalpel blade was used to make a full thickness mucoperiosteal incision, carried from the left external oblique ridge forward to the area of edentulous 20. Full thickness flap was then raised buccally with the periosteal elevator exposing the buccal bone support. A Tinsley drill and copious sterile saline irrigation was then used to make a buccal bone trench. The tooth was elevated. The crown and mesial root were delivered, distal root apical third fractured and was removed after removal of interradicular bone with the elevator technique. The bone was then smoothed, the socket curetted, irrigated and then closed with #3-0 gut interrupted sutures for hemostasis. Attention was then turned to the maxilla. The left maxillary quadrant was performed fist. A #15 scalpel blade was used to make a full thickness mucoperiosteal incision, carried from left maxillary tuberosity forward to the midline in the buccal sulcular gingiva. Full thickness flap was then raised with a periosteal elevator, exposing all the buccal bone support overlying the teeth. Tinsley drill and copious sterile saline was used to make buccal bone trenches along all the remaining upper teeth due to a heavy amount of bone and some exostoses were noted. Once access was obtained, the teeth were then elevated and delivered. The bone support was heavy and some of the molar tooth roots and bicuspid roots were dilacerated leading to some difficulty upon removal. Once the teeth were removed, the sockets were lightly curetted, buccal alveoplasty was performed as necessary, smoothed with a bone file, irrigated copiously and then closed with a #3-0 gut continuous interlocking suture for hemostasis. Attention was then turned to the right maxilla. This side was performed in exactly the same fashion after laying a full thickness flap and exposing the buccal bone. Buccal bone trenches made along the teeth from tooth number 1 to the midline of tooth number 8 and this buccal bone was necessary for removal for access and to mobilize the teeth against dilacerated heavy buccal bone roots and dilacerated tooth roots were noted, making the difficult extractions. Teeth once removed, the sockets were curetted lightly, bone was smoothed, buccal alveoplasty performed as necessary and then closed with a #3-0 gut continuous interlocking suture for hemostasis. At the termination of the procedure, the oropharynx was inspected and found to be free of debris. There was no active heme. The throat pack was removed, and the patient was awakened per anesthesia. The estimated blood loss was approximately 50 mL. Fluids of 1100 mL in crystalloid solution. Needle and sponge count was correct. The teeth were sent for identification only to pathology. DISPOSITION: The patient was extubated in the operating room, taken to the recovery room breathing spontaneously in stable condition.
== END 2017-10-09 14:45 | disposition home or self-care (01) ==
LOC: M SDC 08:28
PROVIDERS: ATTEND Dentist Oral and Maxillofacial Surgery
DX: K02.9 Dental caries, unspecified (principal); K05.6 Periodontal disease, unspecified; Z79.82 Long term (current) use of aspirin; E11.9 Type 2 diabetes mellitus without complications; I10 Essential (primary) hypertension; F17.210 Nicotine dependence, cigarettes, uncomplicated; Z79.899 Other long term (current) drug therapy
CPT/HCPCS: 88300; D7210; D7310; D9223

== ENCOUNTER → 2018-07-15 | Outpatient (CLI) | payer OTHER | LOC: M PAIN 14:30 | DX: M25.512 Pain in left shoulder (principal); E11.9 Type 2 diabetes mellitus without complications; I10 Essential (primary) hypertension; E78.5 Hyperlipidemia, unspecified; F17.200 Nicotine dependence, unspecified, uncomplicated; Z79.82 Long term (current) use of aspirin; Z79.84 Long term (current) use of oral hypoglycemic drugs; Z79.899 Other long term (current) drug therapy; Z88.8 Allergy status to other drugs, medicaments and biological substances; Z86.73 Personal history of transient ischemic attack (TIA), and cerebral infarction without residual deficits | CPT/HCPCS: G0463 ==